=== PATIENT | female | born 1950 | race Caucasian/White ===

== ENCOUNTER 2021-01-20 10:44 | Outpatient (REF) | payer MEDICARE, SELFPAY ==
[2021-01-20 14:24] LABS: Hematocrit 40.7 % (37-47); Hemoglobin 12.6 g/dl (12.0-16.0); Mean Corpuscular Hemoglobin 29.3 pg (27.0-33.0); Mean Corpuscular Volume 94.7 fL (80-98); Mean Platelet Volume 10.8 fL (9.4-12.3); Platelet Count 297 X10*3/uL (160-400); Red Cell Distribution Width 14.5 % (11.0-16.0); White Blood Count 8.4 X10*3/uL (4.8-10.8)
[2021-01-20 14:32] LABS: Glucose Urine UA NEG (NEG); Leukocyte Esterase Urine NEG (NEG); Nitrite Urine NEG (NEG); Specific Gravity - Urine 1.015 (1.005-1.025); Urine Blood NEG (NEG); Urine Ketones NEG (NEG); Urine Protein NEG (NEG-TRACE)
[2021-01-20 14:43] LABS: Appearance Urine CLEAR; Color Urine YELLOW
[2021-01-20 14:52] LABS: Alanine Aminotransferase 15 U/L (0-31); Albumin Level 4.3 g/dL (3.5-5.0); Alkaline Phosphatase 82 U/L (39-117); Anion Gap 14 (12-20); Aspartate Amino Transferase 14 U/L (5-31); Bilirubin Total 0.7 mg/dL (0.0-1.0); Blood Urea Nitrogen 12 mg/dL (9-16); Calcium 9.8 mg/dL (8.4-10.2); Carbon Dioxide 31 mmol/L (22-29); Chloride 101 mmol/L (96-108); Cholesterol 193 mg/dL; Estimated Glomerular Filt Rate > 60; Glucose Fasting 95 mg/dL (60-99); HDL Cholesterol 42 mg/dL; LDL Cholesterol Calculated 107 mg/dl; Potassium 4.1 mmol/L (3.3-5.1); Sodium 142 mmol/L (135-145); Triglycerides 224 mg/dL
[2021-01-20 14:55] LABS: TSH reflex Free T4 0.39 uIU/mL (0.32-4.0)
== END 2021-01-20 10:45 | disposition home or self-care (01) ==
LOC: HO.HMGCLDS 10:44
PROVIDERS: PCP Internal Medicine; Visit Provider Internal Medicine
DX: E78.5 Hyperlipidemia, unspecified (principal); I10 Essential (primary) hypertension; M17.10 Unilateral primary osteoarthritis, unspecified knee
CPT/HCPCS: 36415; 80053; 80061; 81003; 84443; 85027

== ENCOUNTER 2021-01-29 10:35 | Outpatient (REF) | payer MEDICARE, SELFPAY ==
--- NOTE | ~2021-01-29 | MM_ITS ---
EXAMINATION: MM SCREENING DIGITAL BREAST TOMOSYNTHESIS, BILATERAL CLINICAL INFORMATION: Screening. Asymptomatic. The lifetime risk of breast cancer based on the Tyrer-Cuzick Model is 4%. COMPARISON: Mammography: 09/05/2019, 09/03/2018, 08/07/2017 TECHNIQUE: Digital breast tomosynthesis is performed in both the craniocaudal and mediolateral oblique views along with computer-aided detection (CAD). Synthesized 2D images are generated from the tomosynthesis. Additional bilateral CC and bilateral MLO views are provided. FINDINGS: There are scattered areas of fibroglandular density (ACR BI-RADS breast composition Category b). There are no significant masses, abnormal calcifications, or other abnormalities. Parenchymal pattern is similar to prior studies. There is no developing density. No abnormal calcifications. The skin contours are smooth. MM/MM tomosynthesis screening BI IMPRESSION: No mammographic evidence of malignancy. ASSESSMENT: BI-RADS 1: Negative RECOMMENDATION: Routine annual mammography screening. This patient's information was entered into a reminder system with a target due date for their next mammogram.
== END 2021-01-29 10:36 | disposition home or self-care (01) ==
LOC: HO.MAMMO 10:35
PROVIDERS: PCP Internal Medicine; Visit Provider Internal Medicine
DX: Z12.31 Encounter for screening mammogram for malignant neoplasm of breast (principal)
CPT/HCPCS: 77063; 77067

== ENCOUNTER → 2021-02-04 10:07 | Outpatient (BNVA) | payer MEDICARE, SELFPAY | PROVIDERS: Visit Provider Orthopaedic Surgery | DX: M17.0 Bilateral primary osteoarthritis of knee (principal) | CPT/HCPCS: 20610; 99212; J1040 ==

== ENCOUNTER → 2021-06-21 12:48 | Outpatient (BNVA) | payer MEDICARE, SELFPAY | PROVIDERS: Visit Provider Physician Assistant | DX: M17.0 Bilateral primary osteoarthritis of knee (principal); I10 Essential (primary) hypertension; E66.01 Morbid (severe) obesity due to excess calories; Z68.41 Body mass index [BMI] 40.0-44.9, adult | CPT/HCPCS: 20610; 99212; J1040 ==

== ENCOUNTER → 2021-12-15 10:47 | Outpatient (BNVA) | payer MEDICARE, SELFPAY | PROVIDERS: Visit Provider Physician Assistant | DX: M17.0 Bilateral primary osteoarthritis of knee (principal) | CPT/HCPCS: 20610; 99212; J1040 ==

== ENCOUNTER 2022-02-01 10:17 | Outpatient (REF) | payer MEDICARE, SELFPAY ==
--- NOTE | ~2022-02-01 | MM_ITS ---
EXAMINATION: MM SCREENING DIGITAL BREAST TOMOSYNTHESIS, BILATERAL CLINICAL INFORMATION: Screening. Asymptomatic. The lifetime risk of breast cancer based on the Tyrer-Cuzick Model is 3%. COMPARISON: Mammography: 01/29/2021, 09/05/2019, 09/03/2018 TECHNIQUE: Digital breast tomosynthesis is performed in both the craniocaudal and mediolateral oblique views along with computer-aided detection (CAD). Synthesized 2D images are generated from the tomosynthesis. Additional left CC view is provided. FINDINGS: There are scattered areas of fibroglandular density (ACR BI-RADS breast composition Category b). There are no significant masses, abnormal calcifications, or other abnormalities. No developing density or architectural abnormality. No significant changes. MM/MM tomosynthesis screening BI IMPRESSION: No mammographic evidence of malignancy. ASSESSMENT: BI-RADS 1: Negative RECOMMENDATION: Routine annual mammography screening. This patient's information was entered into a reminder system with a target due date for their next mammogram.
== END 2022-02-01 10:18 | disposition home or self-care (01) ==
LOC: HO.MAMMO 10:17
PROVIDERS: PCP Internal Medicine; Visit Provider Internal Medicine
DX: Z12.31 Encounter for screening mammogram for malignant neoplasm of breast (principal)
CPT/HCPCS: 77063; 77067

== ENCOUNTER → 2022-04-17 12:58 | Outpatient (BNVA) | payer MEDICARE, SELFPAY | PROVIDERS: PCP Internal Medicine; Visit Provider Physician Assistant | DX: M17.0 Bilateral primary osteoarthritis of knee (principal) | CPT/HCPCS: 20610; 99212; J1040 ==

== ENCOUNTER 2022-04-26 08:27 | Outpatient (REF) | payer MEDICARE, SELFPAY ==
[2022-04-26 11:15] LABS: MANUAL DIFF FLAG NO
[2022-04-26 11:24] LABS: Basophils Percent Auto 0.4 % (0-2); Eosinophils Absolute Auto 0.2 X10*3/uL (0.0-0.4); Eosinophils Percent Auto 1.8 % (0-4); Hematocrit 41.2 % (37.0-47.0); Hemoglobin 12.8 g/dl (12.0-16.0); Imm Gran Abs Auto 0.05 X10*3/uL (0.00-0.03); Imm Gran Pct Auto 0.5 % (0.0-0.4); Lymphocytes Absolute Auto 1.8 X10*3/uL (1.2-4.9); Lymphocytes Percent Auto 17.7 % (20-40); Mean Corpuscular HGB Conc 31.1 g/dl (31.0-35.0); Mean Corpuscular Hemoglobin 29.6 pg (27.0-33.0); Mean Corpuscular Volume 95.4 fL (80.0-98.0); Mean Platelet Volume 10.2 fL (9.4-12.3); Monocytes Absolute Auto 0.6 X10*3/uL (0.1-1.2); Monocytes Percent Auto 5.7 % (2-11); Neutrophils Absolute Auto 7.4 x10*3/uL (2.0-8.3); Neutrophils Percent Auto 73.9 % (45-73); Platelet Count 282 X10*3/uL (160-400); Red Blood Count 4.32 X10*6/uL (4.20-5.50); Red Cell Distribution Width 14.2 % (11.0-16.0); White Blood Count 10.1 X10*3/uL (4.8-10.8)
[2022-04-26 11:52] LABS: Alanine Aminotransferase 17 U/L (0-31); Albumin Level 4.1 g/dL (3.5-5.0); Alkaline Phosphatase 77 U/L (39-117); Anion Gap 12 (12-20); Aspartate Amino Transferase 13 U/L (5-31); Bilirubin Total 0.6 mg/dL (0.0-1.0); Blood Urea Nitrogen 15 mg/dL (9-16); Calcium 9.4 mg/dL (8.4-10.2); Carbon Dioxide 33 mmol/L (22-29); Chloride 101 mmol/L (96-108); Cholesterol 175 mg/dL; Estimated Glomerular Filt Rate > 60; Glucose Fasting 85 mg/dL (60-99); HDL Cholesterol 47 mg/dL; LDL Cholesterol Calculated 105 mg/dl; Potassium 4.2 mmol/L (3.3-5.1); Sodium 142 mmol/L (135-145); Total Protein 6.7 g/dL (6.5-8.0); Triglycerides 116 mg/dL
[2022-04-26 12:00] LABS: Appearance Urine CLEAR; Color Urine YELLOW; Glucose Urine UA NEG (NEG); Leukocyte Esterase Urine NEG (NEG); Nitrite Urine NEG (NEG); Specific Gravity - Urine 1.015 (1.005-1.025); Urine Blood NEG (NEG); Urine Ketones NEG (NEG); Urine Protein NEG (NEG-TRACE)
[2022-04-26 12:14] LABS: TSH reflex Free T4 0.34 uIU/mL (0.32-4.0)
[2022-04-26 13:25] LABS: Amorphous Sediment Urine 1+ /LPF; Squamous Epithelial Cell Urine 1+ /LPF
[2022-04-26 13:26] LABS: RBC Urine 0 /HPF (0); WBC Urine 0 /HPF (0-4)
== END 2022-04-26 08:28 | disposition home or self-care (01) ==
LOC: HO.HMGCLDS 08:27
PROVIDERS: PCP Internal Medicine; Visit Provider Internal Medicine
DX: Z00.00 Encounter for general adult medical examination without abnormal findings (principal); I10 Essential (primary) hypertension; E78.5 Hyperlipidemia, unspecified; E66.01 Morbid (severe) obesity due to excess calories
CPT/HCPCS: 36415; 80053; 80061; 81001; 84443; 85025

== ENCOUNTER 2022-07-24 06:02 | Outpatient (REF) | payer MEDICARE, SELFPAY ==
--- NOTE | ~2022-07-24 | XR_ITS ---
EXAMINATION: XR KNEE, RIGHT XR KNEE, LEFT XR KNEE AP STANDING CLINICAL INFORMATION: Bilateral knee pain. COMPARISON: Radiographs dated 04/06/2020. TECHNIQUE: Lateral and axial views of the right knee were obtained. Lateral and axial views of the left knee were obtained. AP bilateral standing view of the knees was obtained. RIGHT KNEE: FINDINGS: Bony mineralization is normal. There is marked asymmetric narrowing of the medial joint , and the lateral joint space compartment is well-maintained. There is marked narrowing of the patellofemoral compartment. There is tricompartment peripheral osteophyte formation. No fracture or dislocation is seen. There is no significant joint effusion. No foreign body is seen. XR/XR knee LT 2V IMPRESSION: 1. There is tricompartment osteoarthritic change of the right knee, most pronounced of the medial and patellofemoral compartments, where it is marked. 2. No right knee fracture, dislocation or significant joint effusion is seen. LEFT KNEE: FINDINGS: Bony mineralization is normal. There is marked asymmetric narrowing of the medial joint space compartment, and the lateral joint space compartment is well-maintained. There is marked narrowing of the patellofemoral compartment. There is tricompartment peripheral osteophyte formation. No fracture or dislocation is seen. There is a moderate joint effusion. No foreign body is seen. IMPRESSION: 1. There is tricompartment osteoarthritic change of the left knee, most pronounced of the medial and patellofemoral compartments, where it is marked. 2. There is a moderate left knee joint effusion.
--- NOTE | ~2022-07-24 | XR_ITS ---
EXAMINATION: XR KNEE, RIGHT XR KNEE, LEFT XR KNEE AP STANDING CLINICAL INFORMATION: Bilateral knee pain. COMPARISON: Radiographs dated 04/06/2020. TECHNIQUE: Lateral and axial views of the right knee were obtained. Lateral and axial views of the left knee were obtained. AP bilateral standing view of the knees was obtained. RIGHT KNEE: FINDINGS: Bony mineralization is normal. There is marked asymmetric narrowing of the medial joint , and the lateral joint space compartment is well-maintained. There is marked narrowing of the patellofemoral compartment. There is tricompartment peripheral osteophyte formation. No fracture or dislocation is seen. There is no significant joint effusion. No foreign body is seen. XR/XR knee RT 2V IMPRESSION: 1. There is tricompartment osteoarthritic change of the right knee, most pronounced of the medial and patellofemoral compartments, where it is marked. 2. No right knee fracture, dislocation or significant joint effusion is seen. LEFT KNEE: FINDINGS: Bony mineralization is normal. There is marked asymmetric narrowing of the medial joint space compartment, and the lateral joint space compartment is well-maintained. There is marked narrowing of the patellofemoral compartment. There is tricompartment peripheral osteophyte formation. No fracture or dislocation is seen. There is a moderate joint effusion. No foreign body is seen. IMPRESSION: 1. There is tricompartment osteoarthritic change of the left knee, most pronounced of the medial and patellofemoral compartments, where it is marked. 2. There is a moderate left knee joint effusion.
--- NOTE | ~2022-07-24 | XR_ITS ---
EXAMINATION: XR KNEE, RIGHT XR KNEE, LEFT XR KNEE AP STANDING CLINICAL INFORMATION: Bilateral knee pain. COMPARISON: Radiographs dated 04/06/2020. TECHNIQUE: Lateral and axial views of the right knee were obtained. Lateral and axial views of the left knee were obtained. AP bilateral standing view of the knees was obtained. RIGHT KNEE: FINDINGS: Bony mineralization is normal. There is marked asymmetric narrowing of the medial joint , and the lateral joint space compartment is well-maintained. There is marked narrowing of the patellofemoral compartment. There is tricompartment peripheral osteophyte formation. No fracture or dislocation is seen. There is no significant joint effusion. No foreign body is seen. XR/XR knee standing BI IMPRESSION: 1. There is tricompartment osteoarthritic change of the right knee, most pronounced of the medial and patellofemoral compartments, where it is marked. 2. No right knee fracture, dislocation or significant joint effusion is seen. LEFT KNEE: FINDINGS: Bony mineralization is normal. There is marked asymmetric narrowing of the medial joint space compartment, and the lateral joint space compartment is well-maintained. There is marked narrowing of the patellofemoral compartment. There is tricompartment peripheral osteophyte formation. No fracture or dislocation is seen. There is a moderate joint effusion. No foreign body is seen. IMPRESSION: 1. There is tricompartment osteoarthritic change of the left knee, most pronounced of the medial and patellofemoral compartments, where it is marked. 2. There is a moderate left knee joint effusion.
== END 2022-07-24 06:03 | disposition home or self-care (01) ==
LOC: HO.HOSX 06:02
PROVIDERS: Visit Provider Physician Assistant
DX: M17.0 Bilateral primary osteoarthritis of knee (principal)
CPT/HCPCS: 20610; 73560; 73565; 99212; J1040

== ENCOUNTER → 2022-11-30 14:53 | Outpatient (BNVA) | payer MEDICARE, SELFPAY | PROVIDERS: PCP Internal Medicine; Visit Provider Physician Assistant | DX: M17.0 Bilateral primary osteoarthritis of knee (principal) | CPT/HCPCS: 20610; 99212; J1040 ==

== ENCOUNTER → 2022-12-26 09:18 | Outpatient (BNVA) | payer MEDICARE, SELFPAY | PROVIDERS: PCP Internal Medicine; Visit Provider Internal Medicine | DX: R19.5 Other fecal abnormalities (principal) | CPT/HCPCS: 99202 ==

== ENCOUNTER 2023-01-18 09:30 | Day surgery (SDC) | payer MEDICARE, SELFPAY ==
[2023-01-15 14:09] VITALS: BMI 43.2
--- NOTE | 2023-01-17 12:31 | HO.ANESPROP2 ---
HPI - Anesthesia Eval Consult details Narrative: 72yo F for Colonoscopy PMFSH Active Problems Active Problems: All Active Problems (Updated 08/24/22 @ 12:49 by Aurelia Hair MD) Positive colorectal cancer screening using Cologuard test (Acute) Annual physical exam (Acute) Primary osteoarthritis of knees, bilateral (Acute) Annual physical exam (Acute) Osteoarthritis, knee (Acute) Past Medical History Medical History Annual physical exam Dermatitis HTN (hypertension) Hyperlipidemia Morbidly obese Osteoarthritis, knee Ovarian cyst rupture Surgical History Surgical History H/O colonoscopy History of appendectomy Social History Social History Housing: House Alcohol intake: current Alcohol intake frequency: does not drink Patient Tobacco Use Status: Never used Tobacco e-Cigarette/Vaping Use: Never Used Current occupational status: retired Cognitive needs: No Hearing needs: No Vision needs: Yes Meds Allergies Allergy/AdvReac Type Severity Reaction Status Date / Time Latex, Natural Rubber Allergy Mild Rash Verified 12/26/22 09:25 Home Medications Medication Instructions Recorded Confirmed Last Taken Type ulqkklki-vnpe-xkvip acid 120 1 tab PO DAILY 12/26/22 Unknown History mcg-herb no.293 37.5 mg chewable tablet (Alive Women's Gummy Vitamin) tumeric 100 mg-noreen 150 mg-olive 1 cap PO DAILY 12/26/22 01/15/23 Unknown History 50 mg-oreg 150 mg-caprylate capsule vitamin B complex (B 1 tab PO DAILY 12/26/22 01/15/23 Unknown History Complex-Vitamin B12 tablet) vitamin E (dl, acetate) 45 mg (100 45 mg PO DAILY 12/26/22 01/15/23 Unknown History unit) capsule Exam Exam Date and Time: January 17, 2023 1231 Height,Weight and Vital Signs: Height 5 ft 5 in Weight 117.934 kg Assessment and Plan Assessment Anesthesia Assessment: Chart Reviewed
[2023-01-18 09:44] VITALS: BP 141/107; PULSE 70; RESP 18; TEMP 36.1; O2SAT 98
[2023-01-18 10:04] VITALS: BMI 43.3
[2023-01-18] MEDS: Lactated Ringers 1,000 ML 100 ML IVCONT (10:11)
--- NOTE | 2023-01-18 10:21 | MHC.SHP ---
Pre-Procedural Eval Section A Date of Service: 01/18/23 The patient is an INPATIENT: No Changes since office visit: Yes Patient answered all questions; No Cold of Flu in the past 2 weeks, No New Medical Problems and No Changes in Medication The History & Physical has been completed within 30 days and I have reviewed it.: Yes Section B Chief Complaint: screening, positive cologuard Allergies: Allergies Allergy/AdvReac Type Severity Reaction Status Date / Time Latex, Natural Rubber Allergy Mild Rash Verified 12/26/22 09:25 Plan I have reviewed the history and physical and performed a pertinent physical examination on my patient. No changes have occurred unless specified. Time Spent With Patient Time: Total time managing care of this patient today ____ minutes.
--- NOTE | 2023-01-18 11:15 | P.OP_ITS ---
Operative Note Operative Note Date of Service: 01/18/23 Narrative: COLONOSCOPY TILL CECUM Pre-op diagnosis: Positive cologuard test Post-op diagnosis:? Diverticulosis, hemorrhoids Endoscopist:? Christ Mandujano MD Anesthesia:?MAC Consent: Indications for the procedure and potential complications of bleeding, perforation, reaction to medications and missed diagnosis were discussed with the patient and informed consent was obtained. Instrument: Olympus PCF H 190 L variable stiffness pediatric colonoscope Monitoring: Vital signs and clinical assessment, intermittent blood pressure monitoring, continuous EKG monitoring, Pulse oximetry and Carbon Dioxide monitoring were done throughout the procedure. Please see anesthesia flowsheet. Colon withdrawl time was 19 minutes. Procedure: The patient was placed in the left lateral decubitis position and pre-procedure medications were administered. After a digital rectal examination of the ano-rectum, the video colonoscope was inserted into the rectum and advanced through the colon to the cecum. The colonoscope was slowly withdrawn in a retrograde panoramic fashion and the colon mucosa was carefully examined including a retroflexed view of the rectum. Findings and interventions are described below. Procedure Difficulty: Colon was long and tortuous and there was some loop for mation. LLQ pressure applied to intubate the cecum Findings: Terminal Ileum: Not evaluated Cecum: Normal Ascending Colon: Normal Transverse Colon: Normal Descending Colon: Moderate diverticulosis Sigmoid Colon: Moderate diverticulosis Rectum: Normal Ano-rectum: Moderate internal hemorrhoids Colon preparation: A thin layer of adherent stool in the right colon and Good in the left colon after some irrigation Impression and Post Procedure Diagnosis: Colonoscopy Findings: No polyps were detected Moderate diverticulosis seen in the left colon Moderate hemorrhoids on retroflexed exam. Plan: Patient has an appointment on 01/31/23 in the [facility] with Dr Moreno. Repeat Colonoscopy interval based on path results - in 5 years versus repeat cologuard in 3 years. Adult colonoscope for future colonoscopies. Above findings were reviewed with the patient and diverticulosis handout was given in the discharge area
[2023-01-18 12:10] VITALS: BP 153/83; PULSE 86; RESP 16; TEMP 36.6; O2SAT 95
[2023-01-18 12:25] VITALS: BP 151/66; PULSE 65; RESP 16; O2SAT 95
[2023-01-18 12:40] VITALS: BP 149/67; PULSE 63; RESP 16; TEMP 36.2; O2SAT 97
== END 2023-01-18 13:06 | disposition home or self-care (01) ==
PROVIDERS: PCP Internal Medicine; Visit Provider Internal Medicine Gastroenterology
PROC: 0DJD8ZZ Inspection of Lower Intestinal Tract, Via Natural or Artificial Opening Endoscopic (ICD-10-PCS; CPT 45378; principal; 2023-01-18 11:30)
DX: R19.5 Other fecal abnormalities (principal); Z91.040 Latex allergy status; K57.30 Diverticulosis of large intestine without perforation or abscess without bleeding; K64.8 Other hemorrhoids; K59.09 Other constipation; I10 Essential (primary) hypertension; E78.5 Hyperlipidemia, unspecified; M17.0 Bilateral primary osteoarthritis of knee; L30.9 Dermatitis, unspecified; E66.01 Morbid (severe) obesity due to excess calories; Z68.41 Body mass index [BMI] 40.0-44.9, adult
CPT/HCPCS: 45378

== ENCOUNTER 2023-02-07 09:49 | Outpatient (REF) | payer MEDICARE, SELFPAY ==
--- NOTE | ~2023-02-07 | MM_ITS ---
EXAMINATION: MM SCREENING DIGITAL BREAST TOMOSYNTHESIS, BILATERAL CLINICAL INFORMATION: Screening. Asymptomatic. The lifetime risk of breast cancer based on the Tyrer-Cuzick Model is 2.5%. COMPARISON: Mammography: February 01, 2022 and studies dating back to January 13, 2014 TECHNIQUE: Digital breast tomosynthesis is performed in both the craniocaudal and mediolateral oblique views along with computer-aided detection (CAD). Synthesized 2D images are generated from the tomosynthesis. FINDINGS: The breasts are almost entirely fatty (ACR BI-RADS breast composition Category a). There are no significant masses, abnormal calcifications, or other abnormalities. MM/MM tomosynthesis screening BI IMPRESSION: No significant changes ASSESSMENT: BI-RADS 1: Negative RECOMMENDATION: Routine annual mammography screening. This patient's information was entered into a reminder system with a target due date for their next mammogram.
== END 2023-02-07 09:50 | disposition home or self-care (01) ==
LOC: HO.MAMMO 09:49
PROVIDERS: PCP Internal Medicine; Visit Provider Internal Medicine
DX: Z12.31 Encounter for screening mammogram for malignant neoplasm of breast (principal)
CPT/HCPCS: 77063; 77067

== ENCOUNTER → 2023-02-20 13:02 | Outpatient (BNVA) | payer MEDICARE, SELFPAY | PROVIDERS: PCP Internal Medicine; Visit Provider Physician Assistant | DX: M17.0 Bilateral primary osteoarthritis of knee (principal) | CPT/HCPCS: 20610; 99212; J1040 ==

== ENCOUNTER 2023-04-09 12:26 | Outpatient (AMB) | payer MEDICARE, SELFPAY ==
[2023-04-09 12:36] VITALS: BP 124/74; PULSE 57; O2SAT 98; BMI 43.9
--- NOTE | 2023-04-09 12:36 | A.OFFPC_ITS ---
Vital Signs 04/09/23 12:36 Height 5 ft 5 in Weight 264 lb BMI 43.9 BP 124/74 Blood Pressure Location Rt brachial Position Sitting Pulse 57 Pulse Source Pulse Oximeter Pulse Oximetry (%) 98 Oxygen Delivery Method Room Air Intake Visit Reasons: Medication review Intake Note: Pt is here today for her medication reivew Allergies Latex, Natural Rubber Allergy (Mild, Verified 04/09/23 12:41) Rash Medication List - Last Reconciled 04/09/23 by Aurelia Hair MD diclofenac sodium 75 mg PO BID PRN hydrochlorothiazide 25 mg PO DAILY lisinopril 20 mg PO DAILY lovastatin 20 mg PO DAILY ycaefnay-mxy-hyavf acid-ncu551 120 mcg- 37.5 mg (Alive Women's Gummy Vitamin) 1 tab PO DAILY zbxfcsa-mvjd-kgasf-oreg-capryl 100 mg-150 mg- 50 mg-150 mg 1 cap PO DAILY vitamin B complex (B Complex-Vitamin B12 tablet) 1 tab PO DAILY vitamin E (dl, acetate) 45 mg PO DAILY Tobacco use date assessed: 04/09/23 Fall risk assessment: No Falls in past year Last assessed Fall Risk: 04/09/23 Dental Screening Dental Screen Date: 04/09/23 Did you have a dental visit in the last 12 months?: Yes Did you have a dental problem in the last 6 months where you did not have access to dental care?: Yes Was dental information given to patient?: Patient has dentist HPI Medication review HPI Details Patient presents for physical [facility] Medical History (Updated 04/09/23 @ 13:23 by Aurelia Hair MD) Annual physical exam Dermatitis HTN (hypertension) Hyperlipidemia Morbidly obese Osteoarthritis, knee Ovarian cyst rupture Surgical History (Updated 04/09/23 @ 13:32 by Aurelia Hair MD) H/O colonoscopy History of appendectomy Social History Housing: House Alcohol intake: current Alcohol intake frequency: does not drink Patient Tobacco Use Status: Never used Tobacco e-Cigarette/Vaping Use: Never Used Current occupational status: retired Cognitive needs: No Hearing needs: No Vision needs: Yes Questionnaire Thrive Questionnaire Date Thrive assessed: 03/15/22 AUDIT C Alcohol Use Questionnaire (AUDIT-C) 1. How often do you have a drink containing alcohol?: Never Total Score: 0 Score Reviewed/Action Taken: Yes KIRSTY-7 AMB Questionnaire KIRSTY-7 Date KIRSTY - 7 assessed: 03/15/22 Source: Developed by Drs. Jaron Anderson, Sandi Anton, Shaggy Wiggins and colleagues, with an educational arvind from [employer]. Review of Systems Const All systems reviewed & are unremarkable except as noted in HPI and below Reports no additional complaints Eyes Reports no additional complaints ENT Reports no additional complaints Card Reports no additional complaints Resp Reports no additional complaints GI Reports no additional complaints Reports no additional complaints Physical exam (Primary Care) Vital Signs: Last Vital Signs Pulse 57 04/09/23 12:36 BP 124/74 04/09/23 12:36 Pulse Ox 98 04/09/23 12:36 Oxygen Delivery Method Room Air 04/09/23 12:36 BMI result Body Mass Index 43.9 Tobacco/Smoking Status: Tobacco use Status Tobacco use date assessed 04/09/23 04/09/23 12:38 Patient Tobacco Use Status Never used Tobacco 04/09/23 12:38 e-Cigarette/Vaping Use Never Used 04/09/23 12:38 Thrive Assessment: Date of Thrive Assessment Date Thrive assessed 03/15/22 04/09/23 12:38 Const General: no acute distress HENMT General nose exam: Normal external nose present Throat: Yes posterior oropharynx normal Eyes General: appearance normal, both eyes and all related structures Neck Neck: Yes no lymphadenopathy and Yes supple Resp Effort & Inspection: normal respiratory effort Auscultation: clear to auscultation bilaterally Cardio Rhythm: regular rhythm Heart sounds: S1 normal heart sound present and S2 normal heart sound present GI Inspection: Yes normal to inspection and Yes obesity Palpation (GI): Soft to palpation Percussion: Yes normal to percussion Auscultation: normal bowel sounds Assessment and Plan Assessment & Plan (1) HTN (hypertension): Code(s): I10 - Essential (primary) hypertension Plan: CONTINUE LISINOPRIL AND HYDROCHLOROTHIAZIDE (2) Hyperlipidemia: Code(s): E78.5 - Hyperlipidemia, unspecified Plan: Continue statin return for fasting labs including lipid profile (3) Annual physical exam: Code(s): Z00.00 - Encounter for general adult medical examination without abnormal findings Plan: Well-balanced diet regular physical activity weight loss discussed with the patient. She is up-to-date with mammogram and colonoscopy. (4) Osteoarthritis, knee: Code(s): M17.10 - Unilateral primary osteoarthritis, unspecified knee Plan: Patient follows up with orthopedic surgeon Orders: Orders Vitamin B12 and Folate Today E78.5 - Hyperlipidemia, unspecified, I10 - Essential (primary) hypertension, Z00.00 - Encounter for general adult medical examination without abnormal findings Comprehensive [place]. Panel Fast Today E78.5 - Hyperlipidemia, unspecified, I10 - Essential (primary) hypertension, Z00.00 - Encounter for general adult medical examination without abnormal findings Lipid Panel Today E78.5 - Hyperlipidemia, unspecified, I10 - Essential (primary) hypertension, Z00.00 - Encounter for general adult medical examination without abnormal findings TSH reflex Free T4 Today E78.5 - Hyperlipidemia, unspecified, I10 - Essential (primary) hypertension, Z00.00 - Encounter for general adult medical examination without abnormal findings Complete Blood Count Auto Diff Today E78.5 - Hyperlipidemia, unspecified, I10 - Essential (primary) hypertension, Z00.00 - Encounter for general adult medical examination without abnormal findings Coding Level of Care Code Est Pt Prev Care >65y(88110) Diagnoses HTN (hypertension) I10 Hyperlipidemia E78.5 Annual physical exam Z00.00 Osteoarthritis, knee M17.10
== END 2023-04-09 13:34 | disposition home or self-care (01) ==
PROVIDERS: PCP Internal Medicine; Visit Provider Internal Medicine
DX: I10 Essential (primary) hypertension (principal); E78.5 Hyperlipidemia, unspecified; Z00.00 Encounter for general adult medical examination without abnormal findings; M17.10 Unilateral primary osteoarthritis, unspecified knee
CPT/HCPCS: 99397

== ENCOUNTER 2023-06-05 08:35 | Outpatient (REF) | payer MEDICARE, SELFPAY ==
[2023-06-05 11:40] LABS: MANUAL DIFF FLAG NO
[2023-06-05 11:47] LABS: Basophils Absolute Auto 0.1 X10*3/uL (0.0-0.2); Basophils Percent Auto 0.7 % (0-2); Eosinophils Absolute Auto 0.2 X10*3/uL (0.0-0.4); Eosinophils Percent Auto 3.3 % (0-4); Hematocrit 37.5 % (37.0-47.0); Hemoglobin 11.9 g/dl (12.0-16.0); Imm Gran Abs Auto 0.03 X10*3/uL (0.00-0.03); Imm Gran Pct Auto 0.4 % (0.0-0.4); Lymphocytes Absolute Auto 1.6 X10*3/uL (1.2-4.9); Lymphocytes Percent Auto 22.5 % (20-40); Mean Corpuscular HGB Conc 31.7 g/dl (31.0-35.0); Mean Corpuscular Hemoglobin 30.2 pg (27.0-33.0); Mean Corpuscular Volume 95.2 fL (80.0-98.0); Mean Platelet Volume 11.1 fL (9.4-12.3); Monocytes Absolute Auto 0.5 X10*3/uL (0.1-1.2); Monocytes Percent Auto 7.1 % (2-11); Neutrophils Absolute Auto 4.8 x10*3/uL (2.0-8.3); Platelet Count 264 X10*3/uL (160-400); Red Blood Count 3.94 X10*6/uL (4.20-5.50); Red Cell Distribution Width 14.2 % (11.0-16.0); White Blood Count 7.2 X10*3/uL (4.8-10.8)
[2023-06-05 12:38] LABS: Alanine Aminotransferase 21 U/L (0-31); Albumin Level 3.8 g/dL (3.5-5.0); Alkaline Phosphatase 61 U/L (39-117); Anion Gap 15 (12-20); Aspartate Amino Transferase 23 U/L (5-31); Bilirubin Total 0.5 mg/dL (0.0-1.0); Blood Urea Nitrogen 14 mg/dL (9-16); Calcium 9.8 mg/dL (8.4-10.2); Carbon Dioxide 27 mmol/L (22-29); Chloride 104 mmol/L (96-108); Cholesterol 174 mg/dL (<200); Estimated Glomerular Filt Rate > 60; Glucose Fasting 89 mg/dL (60-99); HDL Cholesterol 38 mg/dL (>40); LDL Cholesterol Calculated 95 mg/dL (<100); Potassium 3.7 mmol/L (3.3-5.1); Sodium 142 mmol/L (135-145); Total Protein 6.7 g/dL (6.5-8.0); Triglycerides 206 mg/dL (<150)
[2023-06-05 12:44] LABS: Folate 17.7 ng/mL (> or = 4.0); Vitamin B12 812 pg/mL (200-900)
[2023-06-05 13:34] LABS: Free T4 (Free Thyroxine) 0.91 ng/dL (0.71-1.85)
== END 2023-06-05 08:36 | disposition home or self-care (01) ==
LOC: HO.HMGCLDS 08:35
PROVIDERS: PCP Internal Medicine; Visit Provider Internal Medicine
DX: Z00.00 Encounter for general adult medical examination without abnormal findings (principal); M17.0 Bilateral primary osteoarthritis of knee; I10 Essential (primary) hypertension; E78.5 Hyperlipidemia, unspecified
CPT/HCPCS: 20610; 36415; 80053; 80061; 82607; 82746; 84439; 84443; 85025; 99212; J1040

== ENCOUNTER 2023-06-05 13:02 | Outpatient (AMB) | payer MEDICARE, SELFPAY ==
--- NOTE | 2023-06-05 13:03 | A.OFFVIS_ITS ---
Intake Vital Signs 06/05/23 13:12 Height 5 ft 6 in Weight 264 lb BMI 42.6 Intake Visit Reasons: OV-B/L knee injection-last injection 02/20/23 Intake Note: Winnie is a 72 year old female who presents today for a repeat injections for her bilateral knee injections, last injections 02/20/23. Patient reports her last injections gave her a month of relief. She also would like a estimated weight to be eligible for surgery. Allergies Latex, Natural Rubber Allergy (Mild, Verified 06/05/23 13:12) Rash HPI OV-B/L knee injection-last injection 02/20/23 HPI Details 72-year-old female who presents in the [facility] today for a follow up of bilateral knee pain. The patient had cortisone injections in the bilateral knees on 02/20/2023. She states the last injection gave her about a month of relief. She would like a repeat injection while in the office today. She would also like to know her estimated weight to be eligible for surgery. Patient BMI is 42.6 on 06/05/2023, with a weight of 264 lbs. [facility] Medical History (Updated 04/09/23 @ 13:23 by Aurelia Hair MD) Annual physical exam Osteoarthritis, knee Ovarian cyst rupture Morbidly obese Hyperlipidemia HTN (hypertension) Dermatitis Surgical History (Updated 04/09/23 @ 13:32 by Aurelia Hair MD) History of appendectomy H/O colonoscopy Social History Housing: House Alcohol intake: current Alcohol intake frequency: does not drink Patient Tobacco Use Status: Never used Tobacco e-Cigarette/Vaping Use: Never Used Current occupational status: retired Cognitive needs: No Hearing needs: No Vision needs: Yes Review of Systems Const All systems reviewed & are unremarkable except as noted in HPI and below Physical Exam Vital Signs: BMI result Body Mass Index 42.6 Const General: cooperative, healthy appearing and no acute distress Resp Effort & Inspection: normal respiratory effort and able to speak in complete sentences Cardio Rate: regular rate Peripheral pulses: Peripheral pulses 2+ throughout GI Palpation (GI): Soft to palpation Skin Lesions: no lesions Rashes: no rashes Extrem Other: Bilateral knees: Normal to inspection. No ecchymosis, erythema, or joint effusion. Crepitus felt with ROM. ROM is 0 to 110. NVI. Office Procedures Joint Injection/Drain Joint Injection/Drain Primary Site: right knee Secondary Site: left knee Prep: site was prepped using aseptic technique, ethochloride spray was applied and injection warnings given Injected: 80 mg of, DepoMedrol, with 8 mL of (2% plain lido ) and in the joint Approach Used: anterolateral Procedure: The patient tolerated the procedure well, but had some pain with the injection and there was some relief with the local anesthesia Coding - Large joint Procedure code (CPT) selection complete Results Reviewed Results Reviewed: 06/05/23 13:03 Lidocaine HCl 2 % MPF [Xylocaine 2 % MPF] 5 ml .ROUTE .STK-MED ONE methylPREDNISolone acetate [DEPO-MedroL] 80 mg .ROUTE .STK-MED ONE Assessment & Plan Assessment & Plan (1) Primary osteoarthritis of knees, bilateral: Code(s): M17.0 - Bilateral primary osteoarthritis of knee Plan Ms. Cade is a 72-year-old female who presents in the office today for a follow up of bilateral knee pain. The patient had cortisone injections in the bilateral knees on 02/20/2023. She states the last injection gave her about a month of relief. She would like a repeat injection while in the office today. She would also like to know her estimated weight to be eligible for surgery. Patient BMI is 42.6 on 06/05/2023, with a weight of 264 lbs. The patient was offered a cortisone injection in the bilateral knees with 80 mg of DepoMedrol. The patient was explained the risk, benefits, and alternatives to receiving this injection. After receiving consent for the injection, the patient had the procedure done while in office today. The patient tolerated the procedure well with no complications. I discussed with the patient that her weight lose goal would be about 25 lbs, to put her BMI below 40. Follow up will be PRN, or sooner if needed. Patient Instructions: Scribed for Lynnette Ramirez PA-C by Brii Kirkpatrick medical office specialist, on 06/05/2023 at 1:05 pm, EST. Coding Level of Care Code Est Pt Level 3 (25415) Diagnoses Primary osteoarthritis of knees, bilateral M17.0 CPT Codes Coding - Large joint: 07738 - Large joint ([id number])
[2023-06-05 13:12] VITALS: BMI 42.6
== END 2023-06-05 13:34 | disposition home or self-care (01) ==
PROVIDERS: PCP Internal Medicine; Visit Provider Physician Assistant
DX: M17.0 Bilateral primary osteoarthritis of knee (principal)
CPT/HCPCS: 20610; 99213

== ENCOUNTER 2023-10-04 09:52 | Outpatient (AMB) | payer MEDICARE, SELFPAY ==
--- NOTE | 2023-10-04 10:02 | A.OFFVIS_ITS ---
Intake Intake Visit Reasons: OV-B/L knee injection Intake Note: Winnie is a 72 year old female who presents today for a repeat injections for her bilateral knee injections, last injections 06/05/23. Patient reports her last injection didn't last her very much about 6 weeks but she would like to repeat and see if they last. Allergies Latex, Natural Rubber Allergy (Mild, Verified 10/04/23 10:04) Rash HPI OV-B/L knee injection HPI Details 72-year-old female who presents in the [facility] today for a follow up of bilateral knee pain. I last saw the patient in the office on 06/05/2023 and at that time she received cortisone injections in the bilateral knees. We discussed her BMI at the time and set a goal of lowering her body weight by 25 pounds in order to move forward with discussions of possible surgical intervention. While in the office today the patient reports her last injection gave her about 6 week s of relief. She would like to repeat the injections while in the office today to see if they last longer this time. FORMERLY [facility], [facility]1983 Medical History (Updated 04/09/23 @ 13:23 by Aurelia Hair MD) Annual physical exam Osteoarthritis, knee Ovarian cyst rupture Morbidly obese Hyperlipidemia HTN (hypertension) Dermatitis Surgical History (Updated 04/09/23 @ 13:32 by Aurelia Hair MD) History of appendectomy H/O colonoscopy Social History Housing: House Alcohol intake: current Alcohol intake frequency: does not drink Patient Tobacco Use Status: Never used Tobacco e-Cigarette/Vaping Use: Never Used Current occupational status: retired Cognitive needs: No Hearing needs: No Vision needs: Yes Review of Systems Const All systems reviewed & are unremarkable except as noted in HPI and below Physical Exam Const General: cooperative, healthy appearing and no acute distress Resp Effort & Inspection: normal respiratory effort and able to speak in complete sentences Cardio Rate: regular rate Peripheral pulses: Peripheral pulses 2+ throughout GI Palpation (GI): Soft to palpation Skin Lesions: no lesions Rashes: no rashes Extrem Other: Bilateral knees: Normal to inspection. No ecchymosis, erythema, or joint effusion. Crepitus felt with ROM. ROM is 0 to 110. NVI. Office Procedures Casting/Splints Details: No casting performed Procedure code (CPT) selection complete Joint Injection/Drain Joint Injection/Drain Primary Site: right knee Secondary Site: left knee Prep: site was prepped using aseptic technique, ethochloride spray was applied and injection warnings given Injected: 80 mg of, DepoMedrol, with 8 mL of (2% plain lido ) and in the joint Approach Used: anterolateral Procedure: The patient tolerated the procedure well, but had some pain with the injection and there was some relief with the local anesthesia Coding - Large joint Procedure code (CPT) selection complete Assessment & Plan Assessment & Plan (1) Primary osteoarthritis of knees, bilateral: Code(s): M17.0 - Bilateral primary osteoarthritis of knee Plan Ms. Cade is a 72-year-old female who presents in the office today for a follow up of bilateral knee pain. I last saw the patient in the office on 06/05/2023 and at that time she received cortisone injections in the bilateral knees. We discussed her BMI at the time and set a goal of lowering her body weight by 25 pounds in order to move forward with discussions of possible surgical intervention. While in the office today the patient reports her last injection gave her about 6 weeks of relief. She would like to repeat the injections while in the office today to see if they last longer this time. The patient was offered a cortisone injection in the bilateral knees with 80 mg of DepoMedrol. The patient was explained the risk, benefits, and alternatives to receiving this injection. After receiving consent for the injection, the patient had the procedure done while in office today. The patient tolerated the procedure well with no complications. Follow up will be PRN, or sooner if needed. Patient Instructions: Scribed for Lynnette Ramirez PA-C by Brii Kirkpatrick medical equipment repair technician, on 10/04/2023 at 9:55 am, EST. Coding Level of Care Code Est Pt Level 3 (76234) Diagnoses Primary osteoarthritis of knees, bilateral M17.0 CPT Codes Coding - Large joint: 28569 - Large joint ([id number])
== END 2023-10-04 10:12 | disposition home or self-care (01) ==
PROVIDERS: PCP Internal Medicine; Visit Provider Physician Assistant
DX: M17.0 Bilateral primary osteoarthritis of knee (principal)
CPT/HCPCS: 20610

== ENCOUNTER → 2023-10-04 09:52 | Outpatient (BNVA) | payer MEDICARE, SELFPAY | PROVIDERS: PCP Internal Medicine; Visit Provider Physician Assistant | DX: M17.0 Bilateral primary osteoarthritis of knee (principal) | CPT/HCPCS: 20610; J1040 ==

== ENCOUNTER 2024-02-29 11:01 | Outpatient (AMB) | payer MEDICARE, SELFPAY ==
--- NOTE | 2024-02-29 11:11 | MHC.OFFVIS ---
Intake Visit Reasons: OV-B/L knee injection-last injection 10/04/23 Intake Note: Winnie is a 73 year old female who presents today for a repeat injections for her bilateral knee injections, last injections 10/04/23. Patient reports that her last injections gave her a good amount of relief. Allergies Latex, Natural Rubber Allergy (Mild, Verified 02/29/24 11:11) Rash HPI HPI OV-B/L knee injection-last injection 10/04/23: Details: 73-year-old female who presents in the office today for a follow-up of bilateral knee pain. I last saw the patient in the office on 10/04/2023 when she was given bilateral knee cortisone injections. While in the office today the patient reports her last injection gave her a good amount of relief. [facility] Medical History (Updated 04/09/23 @ 13:23 by Aurelia Hair MD) Annual physical exam Osteoarthritis, knee Ovarian cyst rupture Morbidly obese Hyperlipidemia HTN (hypertension) Dermatitis Surgical History (Updated 04/09/23 @ 13:32 by Aurelia Hair MD) History of appendectomy H/O colonoscopy Social History Housing: House Alcohol intake: current Alcohol intake frequency: does not drink Patient Tobacco Use Status: Never used Tobacco e-Cigarette/Vaping Use: Never Used Current occupational status: retired Cognitive needs: No Hearing needs: No Vision needs: Yes Review of Systems Const All systems reviewed & are unremarkable except as noted in HPI and below Physical Exam Const General: cooperative, healthy appearing and no acute distress Resp Effort & Inspection: normal respiratory effort and able to speak in complete sentences Cardio Rate: regular rate Peripheral pulses: Peripheral pulses 2+ throughout GI Palpation (GI): Soft to palpation Skin Lesions: no lesions Rashes: no rashes Extrem Other: Bilateral knees: Normal to inspection. No ecchymosis, erythema, or joint effusion. Crepitus felt with ROM. ROM is 0 to 110. NVI. Assessment & Plan Assessment & Plan (1) Primary osteoarthritis of knees, bilateral: Code(s): M17.0 - Bilateral primary osteoarthritis of knee Category: Medical Plan Ms. Cade is a 73-year-old female who presents in the office today for a follow-up of bilateral knee pain. I last saw the patient in the office on 10/04/2023 when she was given bilateral knee cortisone injections. While in the office today the patient reports her last injection gave her a good amount of relief. The patient was offered a cortisone injection in the bilateral knees with 80 mg of DepoMedrol. The patient was explained the risk, benefits, and alternatives to receiving this injection. After receiving consent for the injection, the patient had the procedure done while in the office today. The patient tolerated the procedure well with no complications. Follow-up will be PRN, or sooner if needed. Patient Instructions: Scribed by Brii Kirkpatrick medical research tech, for Lynnette Ramirez PA-C on 02/29/2024 at 11:06 am, EST. Coding Level of Care Code Est Pt Level 3 (12779) Diagnoses Primary osteoarthritis of knees, bilateral M17.0
== END 2024-02-29 11:27 | disposition home or self-care (01) ==
PROVIDERS: PCP Internal Medicine; Visit Provider Physician Assistant
DX: M17.0 Bilateral primary osteoarthritis of knee (principal)
CPT/HCPCS: 20610; 99213

== ENCOUNTER → 2024-02-29 11:01 | Outpatient (BNVA) | payer MEDICARE, SELFPAY | PROVIDERS: PCP Internal Medicine; Visit Provider Physician Assistant | DX: M17.0 Bilateral primary osteoarthritis of knee (principal) | CPT/HCPCS: 20610; 99212; J1010 ==

== ENCOUNTER 2024-03-04 10:02 | Outpatient (REF) | payer MEDICARE, SELFPAY | END 2024-03-04 10:03 | disposition home or self-care (01) | LOC: HO.MAMMO 10:02 | PROVIDERS: PCP Internal Medicine; Visit Provider Internal Medicine | DX: Z12.31 Encounter for screening mammogram for malignant neoplasm of breast (principal) | CPT/HCPCS: 77063; 77067 ==

== ENCOUNTER → 2024-03-04 10:45 | Outpatient (BNV) | payer MEDICARE, SELFPAY | PROVIDERS: PCP Internal Medicine; Visit Provider Radiology Diagnostic Radiology | DX: Z12.31 Encounter for screening mammogram for malignant neoplasm of breast (principal) | CPT/HCPCS: 77063; 77067 ==

== ENCOUNTER 2024-05-13 08:04 | Outpatient (AMB) | payer MEDICARE, SELFPAY ==
[2024-05-13 08:08] VITALS: BP 124/78; PULSE 64; O2SAT 98; BMI 39.2
--- NOTE | 2024-05-13 08:08 | MHC.PC.OV ---
Vital Signs 05/13/24 08:08 Height 5 ft 6 in Weight 243 lb BMI 39.2 BP 124/78 Blood Pressure Location Lt brachial Position Sitting Pulse 64 Pulse Source Pulse Oximeter Pulse Oximetry (%) 98 Oxygen Delivery Method Room Air Intake Visit Reasons: Annual Physical Intake Note: Pt is here today for PE. Allergies Latex, Natural Rubber Allergy (Mild, Verified 05/13/24 08:13) Rash Medication List - Last Reconciled 05/13/24 by Aurelia Hair MD diclofenac sodium 75 mg PO Q12H PRN hydrochlorothiazide 25 mg PO DAILY lisinopril 20 mg PO DAILY lovastatin 20 mg PO DAILY weevbndd-jfo-mffba [id number] 120 mcg- 37.5 mg (Alive Women's Gummy Vitamin) 1 tab PO DAILY pqntweou-dbnl-jmwqo-oreg-capry 100 mg-150 mg- 50 mg-150 mg 1 cap PO DAILY vitamin B complex (B Complex-Vitamin B12 tablet) 1 tab PO DAILY vitamin E (dl, acetate) 45 mg PO DAILY Tobacco use date assessed: 05/13/24 Fall risk assessment: No Falls in past year Last assessed Fall Risk: 05/13/24 Dental Screening Dental Screen Date: 05/13/24 Did you have a dental visit in the last 12 months?: Yes Did you have a dental problem in the last 6 months where you did not have access to dental care?: No Was dental information given to patient?: Patient has dentist HPI Annual Physical HPI Details Patient presents for physical. She complains of bilateral knee pain and stiffness. she has been getting cortisone injection for advanced osteoarthritis every 3 months. Patient reports that effect of the injection does not last 3 months. She was told that she can get knee replacement surgery but needs to lose more weight. Patient has been cutting down on caloric intake, trying to be more physically active for least 6 months and has not been able to lose significant weight. She is interested in trying GLP 1 agonist injection. [facility] Medical History Annual physical exam Osteoarthritis, knee Ovarian cyst rupture Morbidly obese Hyperlipidemia HTN (hypertension) Dermatitis Surgical History History of appendectomy H/O colonoscopy Social History Housing: House Alcohol intake: current Alcohol intake frequency: does not drink Patient Tobacco Use Status: Never used Tobacco e-Cigarette/Vaping Use: Never Used service: No Current occupational status: retired Cognitive needs: No Hearing needs: No Vision needs: Yes Questionnaire PHQ-9 Over the last 2 weeks, how often have you been bothered by any of the following problems? 1. Little interest or pleasure in doing things: not at all 2. Feeling down, depressed, or hopeless: not at all 3. Trouble falling or staying asleep, or sleeping too much: several days 4. Feeling tired or having little energy: several days 5. Poor appetite or overeating: not at all 6. Feeling bad about yourself - or that you are a failure or have let yourself or your family down: not at all 7. Trouble concentrating on things, such as reading the newspaper or watching television: not at all 8. Moving or speaking so slowly that other people could have noticed. Or the opposite - being so fidgety or restless that you have been moving around a lot more than usual: not at all 9. Thoughts that you would be better off or of hurting yourself in some way: not at all Total score: 2 Depression Screening Interpretation: Negative Depression Screening Done: Yes 79717 - PHQ-9 Billing: Yes Source: Developed by Drs. Jaron Anderson, Sandi Anton, Shaggy Wiggins and colleagues, with an educational arvind from [employer]. Thrive Questionnaire Date Thrive assessed: 05/13/24 I am a: Patient What is your living situation today?: I have a steady place to live Within the past 12 months, did the food you bought not last and you didn't have the money to get more?: Never true Within the past 12 months, did you worry whether your food would run out before you got money to buy more?: Never true Do you have trouble paying for medicines?: No Do you have trouble getting transportation to medical appointments?: No Do you have trouble paying your heating and electricity bill?: No Do you have trouble taking care of your child, family member or friend?: No Do you have trouble with day-to-day activities such as bathing, preparing meals, shopping, managing finances, etc.?: No Are you currently unemployed and looking for a job?: No Are you interested in more education?: No Please select the resources that you would like help with: None Currently or been in a relationship where the following occur: I choose not to answer THRIVE Score: 0 AUDIT C Alcohol Use Questionnaire (AUDIT-C) 1. How often do you have a drink containing alcohol?: Never 3. How often do you have six or more drinks on one occasion?: Never Total Score: 0 KIRSTY-7 AMB Questionnaire KIRSTY-7 Date KIRSTY - 7 assessed: 05/13/24 Feeling nervous, anxious, or on edge: 0 = Not at all Not being able to stop or control worryin = Not at all Worrying too much about different things: 0 = Not at all Trouble relaxin = Not at all Being so restless that it is hard to sit still: 0 = Not at all Becoming easily annoyed or irritable: 0 = Not at all Feeling afraid as if something awful might happen: 0 = Not at all Total KIRSTY-7 score (0-4 normal; 5-9 mild; 10-14 moderate; 15-21 severe): 0 Source: Developed by Drs. Jaron Anderson, Sandi Anton, Shaggy Wiggins and colleagues, with an educational arvind from [employer]. KIRSTY-7 Assessment Billing KIRSTY-7 Assessment Tool: KIRSTY-7 Assessment 78234 Review of Systems Const All systems reviewed & are unremarkable except as noted in HPI and below Reports no additional complaints Eyes Reports no additional complaints ENT Reports no additional complaints Card Reports no additional complaints Resp Reports no additional complaints GI Reports no additional complaints Reports no additional complaints Physical exam (Primary Care) Vital Signs: Last Vital Signs Pulse 64 05/13/24 08:08 BP 124/78 05/13/24 08:08 Pulse Ox 98 05/13/24 08:08 Oxygen Delivery Method Room Air 05/13/24 08:08 BMI result Body Mass Index 39.2 Tobacco/Smoking Status: Tobacco use Status Tobacco use date assessed 05/13/24 05/13/24 08:18 Patient Tobacco Use Status Never used Tobacco 05/13/24 08:18 e-Cigarette/Vaping Use Never Used 05/13/24 08:09 PHQ-9: PHQ-9 Score PHQ-9: Total score 2 05/13/24 08:18 Depression Screening Interpretation: Negative Thrive Assessment: Date of Thrive Assessment Date Thrive assessed 05/13/24 05/13/24 08:18 Currently or been in a relationship where the following occur: I choose not to answer Const General: no acute distress HENMT Head: Yes normal to inspection Ears: hearing grossly normal bilaterally Face and sinus: Yes normal facial exam Mouth: Normal oral and palatal mucosa present Teeth and gingiva: dentition normal Throat: Yes posterior oropharynx normal Eyes General: appearance normal, both eyes and all related structures Neck Neck: Yes no lymphadenopathy and Yes supple Resp Effort & Inspection: normal respiratory effort Auscultation: clear to auscultation bilaterally Cardio Rhythm: regular rhythm Heart sounds: S1 normal heart sound present and S2 normal heart sound present GI Inspection: Yes normal to inspection Palpation (GI): Soft to palpation Percussion: Yes normal to percussion Auscultation: normal bowel sounds Assessment and Plan Assessment & Plan (1) HTN (hypertension): Code(s): I10 - Essential (primary) hypertension Plan: cont meds (2) Hyperlipidemia: Code(s): E78.5 - Hyperlipidemia, unspecified Plan: cont statin (3) Annual physical exam: Code(s): Z00.00 - Encounter for general adult medical examination without abnormal findings Plan: Well-balanced diet regular exercise discussed with the patient she is up-to-date with mammogram colonoscopy DEXA will be scheduled (4) Primary osteoarthritis of knees, bilateral: Code(s): M17.0 - Bilateral primary osteoarthritis of knee Plan: Follow-up with ortho, referred to PT (5) Morbidly obese: Code(s): E66.01 - Morbid (severe) obesity due to excess calories Plan: Decreasing caloric intake increase physical activity discussed with the patient Wegovy will be tried for 2 months and then patient will follow-up to monitor her weight loss (6) Vitamin D deficiency: Code(s): E55.9 - Vitamin D deficiency, unspecified Plan: Continue vitamin-D. Orders: Orders Complete Blood Count Auto Diff Today E55.9 - Vitamin D deficiency, unspecified, E66.01 - Morbid (severe) obesity due to excess calories, E78.5 - Hyperlipidemia, unspecified, I10 - Essential (primary) hypertension, M17.0 - Bilateral primary osteoarthritis of knee, Z00.00 - Encounter for general adult medical examination without abnormal findings Vitamin B12 and Folate Today E55.9 - Vitamin D deficiency, unspecified, E66.01 - Morbid (severe) obesity due to excess calories, E78.5 - Hyperlipidemia, unspecified, I10 - Essential (primary) hypertension, M17.0 - Bilateral primary osteoarthritis of knee, Z00.00 - Encounter for general adult medical examination without abnormal findings UA w Microscopic Today E55.9 - Vitamin D deficiency, unspecified, E66.01 - Morbid (severe) obesity due to excess calories, E78.5 - Hyperlipidemia, unspecified, I10 - Essential (primary) hypertension, M17.0 - Bilateral primary osteoarthritis of knee, Z00.00 - Encounter for general adult medical examination without abnormal findings XR DEXA axial skeleton Today E55.9 - Vitamin D deficiency, unspecified, E66.01 - Morbid (severe) obesity due to excess calories, E78.5 - Hyperlipidemia, unspecified, I10 - Essential (primary) hypertension, M17.0 - Bilateral primary osteoarthritis of knee, Z00.00 - Encounter for general adult medical examination without abnormal findings Lipid Panel 1 Year E55.9 - Vitamin D deficiency, unspecified, E78.5 - Hyperlipidemia, unspecified, I10 - Essential (primary) hypertension Complete Blood Count Auto Diff 1 Year E55.9 - Vitamin D deficiency, unspecified, E78.5 - Hyperlipidemia, unspecified, I10 - Essential (primary) hypertension TSH reflex Free T4 1 Year E55.9 - Vitamin D deficiency, unspecified, E78.5 - Hyperlipidemia, unspecified, I10 - Essential (primary) hypertension Vitamin B12 and Folate 1 Year E55.9 - Vitamin D deficiency, unspecified, E78.5 - Hyperlipidemia, unspecified, I10 - Essential (primary) hypertension PT Evaluation and Treatment Today M17.0 - Bilateral primary osteoarthritis of knee Comprehensive [place]. Panel Fast Today E55.9 - Vitamin D deficiency, unspecified, E66.01 - Morbid (severe) obesity due to excess calories, E78.5 - Hyperlipidemia, unspecified, I10 - Essential (primary) hypertension, M17.0 - Bilateral primary osteoarthritis of knee, Z00.00 - Encounter for general adult medical examination without abnormal findings Lipid Panel Today E55.9 - Vitamin D deficiency, unspecified, E66.01 - Morbid (severe) obesity due to excess calories, E78.5 - Hyperlipidemia, unspecified, I10 - Essential (primary) hypertension, M17.0 - Bilateral primary osteoarthritis of knee, Z00.00 - Encounter for general adult medical examination without abnormal findings TSH reflex Free T4 Today E55.9 - Vitamin D deficiency, unspecified, E66.01 - Morbid (severe) obesity due to excess calories, E78.5 - Hyperlipidemia, unspecified, I10 - Essential (primary) hypertension, M17.0 - Bilateral primary osteoarthritis of knee, Z00.00 - Encounter for general adult medical examination without abnormal findings Vitamin D 25-OH Total Today E55.9 - Vitamin D deficiency, unspecified, E66.01 - Morbid (severe) obesity due to excess calories, E78.5 - Hyperlipidemia, unspecified, I10 - Essential (primary) hypertension, M17.0 - Bilateral primary osteoarthritis of knee, Z00.00 - Encounter for general adult medical examination without abnormal findings Comprehensive [place]. Panel Fast 1 Year E55.9 - Vitamin D deficiency, unspecified, E78.5 - Hyperlipidemia, unspecified, I10 - Essential (primary) hypertension Medications: New Wegovy (semaglutide (weight loss)) administer weeks 1 through 4 of therapy, then 0.5 mg q weekly 0.25 mg (0.5 mL) subcut QWEEK 2 mL 1RF NS Wegovy (semaglutide (weight loss)) administer weeks 1 through 4 of therapy, then 0.5 mg q weekly 0.25 mg (0.5 mL) subcut QWEEK 2 mL 1RF NS Refilled lisinopril 20 mg PO DAILY 90 tabs 3RF lovastatin 20 mg PO DAILY 90 tabs 3RF hydrochlorothiazide 25 mg PO DAILY 90 tabs 3RF Coding Level of Care Code Est Pt Prev Care >65y(84138) Diagnoses HTN (hypertension) I10 Hyperlipidemia E78.5 Annual physical exam Z00.00 Primary osteoarthritis of knees, bilateral M17.0 Morbidly obese E66.01 Vitamin D deficiency E55.9 Additional Codes KIRSTY-7 Assessment Billing - KIRSTY-7 Assessment Tool: KIRSTY-7 Assessment 92915 ([id number])
== END 2024-05-13 08:55 | disposition home or self-care (01) ==
PROVIDERS: PCP Internal Medicine; Visit Provider Internal Medicine
DX: Z00.00 Encounter for general adult medical examination without abnormal findings (principal); E66.01 Morbid (severe) obesity due to excess calories; Z68.39 Body mass index [BMI] 39.0-39.9, adult; I10 Essential (primary) hypertension; E78.5 Hyperlipidemia, unspecified; M17.0 Bilateral primary osteoarthritis of knee; E55.9 Vitamin D deficiency, unspecified
CPT/HCPCS: 99397

== ENCOUNTER 2024-05-13 08:52 | Outpatient (REF) | payer MEDICARE, SELFPAY ==
[2024-05-13 10:29] LABS: MANUAL DIFF FLAG NO
[2024-05-13 10:34] LABS: Basophils Absolute Auto 0.1 X10*3/uL (0.0-0.2); Basophils Percent Auto 0.6 % (0-2); Eosinophils Absolute Auto 0.2 X10*3/uL (0.0-0.4); Hematocrit 36.1 % (37.0-47.0); Hemoglobin 11.9 g/dl (12.0-16.0); Imm Gran Abs Auto 0.03 X10*3/uL (0.00-0.03); Imm Gran Pct Auto 0.4 % (0.0-0.4); Lymphocytes Absolute Auto 2.1 X10*3/uL (1.2-4.9); Lymphocytes Percent Auto 25.1 % (20-40); Mean Corpuscular Hemoglobin 30.5 pg (27.0-33.0); Mean Corpuscular Volume 92.6 fL (80.0-98.0); Mean Platelet Volume 10.4 fL (9.4-12.3); Monocytes Absolute Auto 0.5 X10*3/uL (0.1-1.2); Monocytes Percent Auto 5.7 % (2-11); Neutrophils Absolute Auto 5.6 x10*3/uL (2.0-8.3); Neutrophils Percent Auto 66.2 % (45-73); Platelet Count 297 X10*3/uL (160-400); Red Cell Distribution Width 14.7 % (11.0-16.0); White Blood Count 8.4 X10*3/uL (4.8-10.8)
[2024-05-13 10:55] LABS: Appearance Urine Clear; Color Urine Yellow; Glucose Urine UA Negative (Negative); Leukocyte Esterase Urine Small (1+) (Negative); Nitrite Urine Negative (Negative); UMIC TRIGGER UA YES; Urine Blood Negative (Negative); Urine Ketones Negative (Negative); Urine Protein Negative (Neg-Trace)
[2024-05-13 11:02] LABS: Alanine Aminotransferase 11 U/L (0-31); Albumin Level 3.9 g/dL (3.5-5.0); Alkaline Phosphatase 64 U/L (39-117); Anion Gap 11 (12-20); Aspartate Amino Transferase 12 U/L (5-31); Bilirubin Total 0.5 mg/dL (0.0-1.0); Blood Urea Nitrogen 16 mg/dL (9-16); Calcium 9.8 mg/dL (8.4-10.2); Carbon Dioxide 30 mmol/L (22-29); Chloride 104 mmol/L (96-108); Cholesterol 179 mg/dL (<200); Estimated Glomerular Filt Rate > 60; Glucose Fasting 91 mg/dL (60-99); HDL Cholesterol 40 mg/dL (>40); LDL Cholesterol Calculated 105 mg/dL (<100); Potassium 3.3 mmol/L (3.3-5.1); Sodium 142 mmol/L (135-145); Total Protein 6.7 g/dL (6.5-8.0); Triglycerides 172 mg/dL (<150)
[2024-05-13 11:12] LABS: Bacteria Urine Trace (None Seen); RBC Urine 0-2 /HPF (0-2); WBC Urine 0-5 /HPF (0-5)
[2024-05-13 11:21] LABS: Folate 10.3 ng/mL (> or = 4.0); TSH reflex Free T4 0.21 uIU/mL (0.32-4.0); Vitamin B12 249 pg/mL (200-900); Vitamin D 25-OH Total 38.8 ng/mL (>30)
[2024-05-13 11:59] LABS: Free T4 (Free Thyroxine) 0.95 ng/dL (0.71-1.85)
== END 2024-05-13 08:53 | disposition home or self-care (01) ==
LOC: HO.HMGCLDS 08:52
PROVIDERS: PCP Internal Medicine; Visit Provider Internal Medicine
DX: Z00.00 Encounter for general adult medical examination without abnormal findings (principal); I10 Essential (primary) hypertension; E78.5 Hyperlipidemia, unspecified; M17.0 Bilateral primary osteoarthritis of knee; E55.9 Vitamin D deficiency, unspecified; E66.01 Morbid (severe) obesity due to excess calories
CPT/HCPCS: 36415; 80053; 80061; 81001; 82306; 82607; 82746; 84439; 84443; 85025

== ENCOUNTER 2024-05-16 12:11 | Outpatient (REF) | payer MEDICARE, SELFPAY ==
[2024-05-16 14:16] LABS: Iron 74 mcg/dL (30-160); Percent Iron Saturation 31 % (15-50); Total Iron Binding Capacity 239 mcg/dL (228-428); Unsaturated Iron Binding 165 ug/dL
[2024-05-16 14:37] LABS: Folate 11.6 ng/mL (> or = 4.0); Vitamin B12 258 pg/mL (200-900)
== END 2024-05-16 12:12 | disposition home or self-care (01) ==
LOC: HO.HMGCLDS 12:11
PROVIDERS: PCP Internal Medicine; Visit Provider Internal Medicine
DX: D64.9 Anemia, unspecified (principal)
CPT/HCPCS: 36415; 82607; 82746; 83540

== ENCOUNTER 2024-06-03 12:16 | Outpatient (AMB) | payer MEDICARE, SELFPAY ==
--- NOTE | 2024-06-03 12:24 | MHC.OFFVIS ---
Vital Signs 06/03/24 12:47 Height 5 ft 6 in Weight 243 lb BMI 39.2 Intake Visit Reasons: B/L knee injections, last inj 02/29/24 Intake Note: Winnie is a 73 year old female who presents today for a repeat injections for her bilateral knees, last injections 02/29/24. Patient reports her last injections didn't give her much relief but she would like to try one last time. She is considering surgery and what that in tails. Allergies Latex, Natural Rubber Allergy (Mild, Verified 06/03/24 12:32) Rash HPI HPI B/L knee injections, last inj 02/29/24: Details: 73-year-old female who presents in the office today for a follow-up of bilateral knee pain. I last saw the patient in the office on 02/29/24 when she received cortisone injections in the bilateral knees. ? ? While in the office today, the patient reports the last injection did not give her much relief, however, she would like to try one more time. ? [facility] Medical History Annual physical exam Osteoarthritis, knee Ovarian cyst rupture Morbidly obese Hyperlipidemia HTN (hypertension) Dermatitis Surgical History History of appendectomy H/O colonoscopy Social History Housing: House Alcohol intake: current Alcohol intake frequency: does not drink Patient Tobacco Use Status: Never used Tobacco e-Cigarette/Vaping Use: Never Used service: No Current occupational status: retired Cognitive needs: No Hearing needs: No Vision needs: Yes Review of Systems Const All systems reviewed & are unremarkable except as noted in HPI and below Physical Exam Vital Signs: BMI result Body Mass Index 39.2 Const General: cooperative, healthy appearing and no acute distress Resp Effort & Inspection: normal respiratory effort and able to speak in complete sentences Cardio Rate: regular rate Peripheral pulses: Peripheral pulses 2+ throughout GI Palpation (GI): Soft to palpation Skin Lesions: no lesions Rashes: no rashes Extrem Other: Bilateral knees: Normal to inspection. No ecchymosis, erythema, or joint effusion. Crepitus felt with ROM. ROM is 0 to 110. NVI. Office Procedures Joint Injection/Aspiration Joint Injection/Aspiration Primary Site: right knee Secondary Site: left knee Prep: site was prepped using aseptic technique, ethochloride spray was applied and injection warnings given Injected: 80 mg of, DepoMedrol, with 8 mL of (2% plain lido ) and in the joint Approach Used: anterolateral Procedure: The patient tolerated the procedure well, but had some pain with the injection and there was some relief with the local anesthesia Coding - Large joint Procedure code (CPT) selection complete Assessment & Plan Assessment & Plan (1) Primary osteoarthritis of knees, bilateral: Code(s): M17.0 - Bilateral primary osteoarthritis of knee Category: Medical Plan Ms. Cade is a 73-year-old female who presents in the office today for a follow-up of bilateral knee pain. I last saw the patient in the office on 02/29/24 when she received cortisone injections in the bilateral knees. ? ? While in the office today, the patient reports the last injection did not give her much relief, however, she would like to try one more time.? ? The patient was offered a cortisone injection in the bilateral knees with 80 mg of Depo-Medrol. The patient was explained the risks, benefits, and alternatives to receiving this injection. After receiving consent for the injection, the patient had the procedure done while in the office today. The patient tolerated the procedure well with no complications.? ? We discuss a total knee arthroplasty while in the office today. The patient reports the left knee is worse then the right knee. She is interested in proceeding in Spring 2024. She would like to further discuss the procedure and repeat injections with Dr. Rodríguez. We discussed her BMI which was 39.2 at her appointment with her PCP on 05/13/24. Therefore, her follow-up will be in [address] Rodríguez to discuss a total knee arthroplasty and repeat bilateral knee cortisone injections, or sooner if needed. Patient Instructions: Scribed by Brii Kirkpatrick medical laboratory specialist, for Lynnette Ramirez PA-C on 06/03/2024 at 12:35 pm, EST.? Coding Level of Care Code Est Pt Level 4 (20242) Diagnoses Primary osteoarthritis of knees, bilateral M17.0 CPT Codes Coding - Large joint: 98835 - Large joint ([id number])
[2024-06-03 12:47] VITALS: BMI 39.2
== END 2024-06-03 15:50 | disposition home or self-care (01) ==
PROVIDERS: PCP Internal Medicine; Visit Provider Physician Assistant
DX: M17.0 Bilateral primary osteoarthritis of knee (principal)
CPT/HCPCS: 20610; 99214

== ENCOUNTER → 2024-06-03 12:16 | Outpatient (BNVA) | payer MEDICARE, SELFPAY | PROVIDERS: PCP Internal Medicine; Visit Provider Physician Assistant | DX: M17.0 Bilateral primary osteoarthritis of knee (principal) | CPT/HCPCS: 20610; 99212; J1010 ==

== ENCOUNTER 2024-06-11 12:57 | Outpatient (REF) | payer MEDICARE, SELFPAY ==
--- NOTE | ~2024-06-11 | MM_ITS ---
EXAMINATION: BONE DENSITOMETRY CLINICAL INDICATION: Essential primary hypertension. COMPARISON: Baseline BD dated 09/03/2018. TECHNIQUE: Using a [employer] Spine DXA System (software version: 13.1) manufactured by [employer], dual-energy x-ray absorptiometry was performed of the lumbar spine and left hip. The images are of good technical quality. Summary results are attached. FINDINGS: LEFT FEMUR, NECK: Current: BMD 1.056 g/cm2, Z-score 1.2, T-score 0.1, normal. Baseline: BMD 1.055 g/cm2. LEFT FEMUR, TOTAL: Current: BMD 1.004 g/cm2, Z-score 0.8, T-score 0.0, normal, 5.0% decrease from baseline (<5% change is not significant). Baseline: BMD 1.057 g/cm2. AP SPINE L1-L4: Current: BMD 1.451 g/cm2, Z-score 2.8, T-score 2.3, normal. 3.1% increase from baseline (<5% change is not significant). Baseline: BMD 1.407 g/cm2. IDENTIFIED RISK FACTORS: Menopause, height loss, glucocorticoids (chronic), right oophorectomy. HISTORY OF FRACTURE: None listed. MEDICATIONS: None listed. MM/XR DEXA axial skeleton IMPRESSION: 1. DIAGNOSIS: Normal bone density based on the lowest T-score value of 0.0 in the total femur applying World Health Organization criteria. 2. 10-YEAR FRACTURE RISK PREDICTION, FRAX: According to the guidelines, FRAX calculation should only be performed on patients in the osteopenia bone density category. Therefore, FRAX was not performed on this patient. 3. Treatment Recommendations: NOF guidelines recommend consideration for treatment in postmenopausal women and men age 50 and older presenting with the following: -A hip or vertebral (clinical or morphometric) fracture. -T-score less than or equal to -2.5 at the femoral neck or spine after appropriate evaluation to exclude secondary causes. -Low bone mass at the hip or spine and a 10-year fracture probability by FRAX of greater than or equal to 3% for hip fracture or greater than or equal to 20% for major osteoporotic fracture based on the [place] adapted WHO algorithm. 4. Other Recommendations: All treatment decisions require clinical judgment and consideration of individual patient factors, including patient preferences, comorbidities, previous drug use, risk factors not captured in the FRAX model (e.g. frailty, falls, vitamin D deficiency, increased bone turnover, interval significant decline in bone density) and possible under or overestimation of fracture risk by FRAX. FUTURE SCAN RECOMMENDATION: People with diagnosed cases of osteoporosis or at high risk for fracture should have regular bone mineral density tests. For patients eligible for Medicare, routine testing is allowed once every 2 years. The testing frequency can be increased to one year for patients who have rapidly progressing disease, those who are receiving or discontinuing medical therapy to restore bone mass, or have additional risk factors. Electronically signed by: Dawna Tineo MD 06/24/2024 08:44 AM EDT
== END 2024-06-11 12:58 | disposition home or self-care (01) ==
LOC: HO.MAMMO 12:57
PROVIDERS: PCP Internal Medicine; Visit Provider Internal Medicine
DX: Z13.820 Encounter for screening for osteoporosis (principal); Z78.0 Asymptomatic menopausal state
CPT/HCPCS: 77080

== ENCOUNTER 2024-06-25 13:00 | Outpatient (RCR) | payer MEDICARE, SELFPAY ==
--- NOTE | 2024-06-11 11:11 | MHC.PT.EP ---
[facility] [place] Office [place] Office [place] Office [address] Lawrence Aguilera [address] [phone] F: [phone] F: [phone] F: [phone] F: [phone] Physical Therapy Plan of Care Date of Evaluation: 06/11/24 Date of Surgery: Diagnosis: bilateral primary OA of knees Assessment: Patient is a 73 year old R handed female who presents with s/s consistent with bilateral knee OA, bilateral knee pain. She does not work and is fairly sedentary during the day as a result. Patient past medical history includes chronic OA and obesity. Current impairments include pain, balance, ROM, strength, activity tolerance and functional mobility. Functional limitations include decreased ability to walk, stand, negotiate stairs, go into community, and be on feet to perform any tasks. Patient is motivated with good rehab potential. Skilled PT will address impairments and functional limitations in order to achieve goals. Frequency and Duration: The patient will be seen 1x/week for 5 weeks Short Term Goals: I with HEP - 2 weeks AROM 0-105 - 3 weeks Able to walk 10 minutes 3/10 pain max -3 weeks Pastry Finisher Goals: b/l knees 0-115 - 5 weeks LEFS 38/80 - 5 weeks Strength 4/5 grossly - 5 weeks Step up/down with 1 HH assist max pain 2/10 - 5 weeks Treatment Plan: Modalities to reduce pain, spasms and effusion. Manual therapy to restore motion and function. Therapeutic exercise to improve strength and flexibility. Neuromuscular re-education for posture and balance. Therapeutic activities to return to functional activities of daily living. Electronically signed by: Myron Knox, PT Please sign and return to therapist. Thank you for your referral.
--- NOTE | 2024-12-05 12:30 | MHC.PT.DC ---
[facility] [place] Office [place] Office [place] Office [address] Lawrence Aguilera [address] [phone] F: [phone] F: [phone] F: [phone] F: [phone] Physical Therapy Discharge Report Diagnosis: bilateral primary OA of knees Date of Surgery: Date of Evaluation: 06/11/24 Date of Discharge: 08/07/24 Treatments to Date: 2 Cancellations to Date: No Shows to Date: Discharge Status: Improved Function Independent with HEP Patient Elected to Stop Discharge Summary: 06/25/24: pt leaving next week for the winter. we updated and reviewed HEP. pt questions answered. we will d/c to HEP at this time. 06/17/24: pt progressing well with skilled PT. added SAQ and SLR to HEP today and will assess response NV. some discomfort noted on stepper today. Patient is a 73 year old R handed female who presents with s/s consistent with bilateral knee OA, bilateral knee pain. She does not work and is fairly sedentary during the day as a result. Patient past medical history includes chronic OA and obesity. Current impairments include pain, balance, ROM, strength, activity tolerance and functional mobility. Functional limitations include decreased ability to walk, stand, negotiate stairs, go into community, and be on feet to perform any tasks. Patient is motivated with good rehab potential. Skilled PT will address impairments and functional limitations in order to achieve goals. Electronically signed by: Myron Knox, PT Please sign and return to therapist. Thank you for your referral.
== END 2024-12-05 12:30 | disposition home or self-care (01) ==
LOC: HO.PTCHIC 13:00
PROVIDERS: PCP Internal Medicine; Visit Provider Internal Medicine
DX: M17.0 Bilateral primary osteoarthritis of knee (principal)
CPT/HCPCS: 97110; 97162

== ENCOUNTER 2024-10-02 12:36 | Outpatient (AMB) | payer MEDICARE, SELFPAY ==
--- NOTE | 2024-10-02 12:44 | MHC.OFFVIS ---
Intake Visit Reasons: OV- B/L knee OA - Discuss Left TKA Intake Note: Winnie is a 73 year old female who presents today, referred by Lynnette Ramirez, to discuss Left Total Knee Arthroplasty. Bilateral knees last injected 06/03/24, Bilateral Supartz inj 05/26/2020. Patient reports that the gel injections are not helpful at all and the cortisone injections have become less effective over time. She would like to discuss TKA - [place] and is hoping to discuss TKA for December and have repeat cortisone today She is also requesting a refill of Diclofenac to be sent to [facility] Allergies Latex, Natural Rubber Allergy (Mild, Verified 06/03/24 12:32) Rash HPI HPI OV- B/L knee OA - Discuss Left TKA: Details: Winnie is a 73 year old female who presents today, referred by Lynnette Ramirez, to discuss Left Total Knee Arthroplasty. Bilateral knees last injected 06/03/24, Bilateral Supartz inj 05/26/2020. Patient reports that the gel injections are not helpful at all and the cortisone injections have become less effective over time. She would like to discuss TKA - she [place] and is hoping to discuss TKA for December and have repeat cortisone today. She feels limited in her ability to actively engage in daily activities. Her left knee is more painful than her right knee. She feels that her ambulatory capacity is limited and the quality of her life suffers as a consequence. She is also requesting a refill of Diclofenac to be sent to [facility] Medical History Annual physical exam Osteoarthritis, knee Ovarian cyst rupture Morbidly obese Hyperlipidemia HTN (hypertension) Dermatitis Surgical History History of appendectomy H/O colonoscopy Social History Housing: House Alcohol intake: current Alcohol intake frequency: does not drink Patient Tobacco Use Status: Never used Tobacco e-Cigarette/Vaping Use: Never Used service: No Current occupational status: retired Cognitive needs: No Hearing needs: No Vision needs: Yes Physical Exam Extrem Other: 110 degrees of bilateral flexion with tenderness to palpation medial compartment left greater than right. She has moderate lymphedema of left lower extremity with a warm and well-perfused foot bilaterally. Office Procedures Joint Inj/Aspir; Non-Pain Clin Joint Injection/Drain Details: Injected 1 mL of Decadron and 3 mL 1% lidocaine and 3 mL of 0.25% Marcaine. Site was prepped using aseptic technique. Patient tolerated the procedure well. Shoulders, Hips, Knees, Knee Large Joint Injection : Right Knee Coding Procedure code (CPT) selection complete Results Reviewed Results Reviewed: I personally reviewed relevant radiographs. Severe bilateral knee OA left greater right. Assessment & Plan Assessment & Plan (1) Primary osteoarthritis of knees, bilateral: Code(s): M17.0 - Bilateral primary osteoarthritis of knee Category: Medical Plan: This is a 73-year-old woman with bilateral knee OA left greater than right. She has tried and failed conservative treatment and her ambulatory capacity is limited. Her arthritis is severe on radiographs and I recommend left knee replacement. She has some moderate venous static changes that are chronic on the lower legs and might be reasonable to get an ADELAIDE prior to surgery but I suspect that this will be negative. I discussed this with her and I will order it. In addition I will contact our nurse navigator and begin the preoperative clearance process. I discussed the risks, benefits and alternatives with the patient including, but not limited to the risk of infection, stiffness, fracture, need for further surgery as well as many patients associated with surgery. She expressed understanding and we will proceed forward accordingly. Of note I did inject her right knee as we will not be operating on this within 6 months' time. Orders: Orders XR knee RT 1V Today M25.569 - Pain in unspecified knee XR knee LT 3V Today M25.562 - Pain in left knee US ADELAIDE complete Today M17.0 - Bilateral primary osteoarthritis of knee Coding Level of Care Code Est Pt Level 4 (53336) Diagnoses Primary osteoarthritis of knees, bilateral M17.0 CPT Codes Shoulders, Hips, Knees, - Knee Large Joint Injection : Right Knee ([id number])
== END 2024-10-02 13:34 | disposition home or self-care (01) ==
PROVIDERS: PCP Internal Medicine; Visit Provider Orthopaedic Surgery
DX: M17.0 Bilateral primary osteoarthritis of knee (principal)
CPT/HCPCS: 20610; 99214

== ENCOUNTER 2025-01-08 10:35 | Outpatient (REF) | payer MEDICARE, SELFPAY ==
--- NOTE | ~2025-01-08 | US_ITS ---
CLINICAL HISTORY: M17.0 - Bilateral primary osteoarthritis of knee, hyperlipidemia ADELAIDE with segmental pressures Comparison: None Findings: Right: Brachial: >200 mmHg Posterior tibial: >200 mmHg, noncompressible Dorsalis pedis: >200 mmHg, noncompressible Left: Brachial: >200 mmHg Posterior tibial: >200 mmHg, noncompressible Dorsalis pedis: >200 mmHg, noncompressible Impression: >200 mmHg at both ankles, non compressible arteries possibly due to calcification. Consider toe-brachial index assessment. This document has been electronically signed by: Elmo Maddox MD on 01/14/2025 02:15:03
--- OUTSIDE RECORDS SUMMARY | 2025-01-08 12:19 | XMS_ITS | Patient Health Record ---
Author Organization [facility] us Address [address] [facility] [address] [place] [address] Care Team Providers Care Product Applications Scientist Name Role Phone Unknown, Unknown Primary Care Provider Unavailab le Allergies No Known Allergies Reason For Referral No Information Medications Medication SIG (Take, Route, Fr equency, Duration) Notes Start Date End Date Status hydroCHLOROthiazide Active Lisinopril Active Lovastatin Active Problems Problem Type SNOMED Code ICD Code Onset Dates Problem Status W/U Status Risk Notes Problem Exposure to COVID-19 (847206750) Exposure to COVID-19 virus (Z20.828) Active confirmed Plan Of Treatment No Information Insurance Providers Payer Name Payer Address Payer Phone Subscriber Number Group Number Insured Name Patient Relationship to Insured Coverage Start Date Coverage End Date [facility] [address] [place] [address] [phone] [id number] NEY [id number] Self - patient is the insured Medical (General) History Medical History History ICD Code HIGH BLOOD PRESSURE
== END 2025-01-08 10:36 | disposition home or self-care (01) ==
LOC: HO.US 10:35
PROVIDERS: PCP Internal Medicine; Visit Provider Ophthalmology
DX: Z01.818 Encounter for other preprocedural examination (principal); I87.8 Other specified disorders of veins; M17.0 Bilateral primary osteoarthritis of knee; E78.5 Hyperlipidemia, unspecified
CPT/HCPCS: 93923

== ENCOUNTER → 2025-01-08 10:38 | Outpatient (BNV) | payer MEDICARE, SELFPAY | PROVIDERS: PCP Internal Medicine; Visit Provider Radiology Diagnostic Radiology | DX: M17.0 Bilateral primary osteoarthritis of knee (principal); E78.5 Hyperlipidemia, unspecified | CPT/HCPCS: 93923 ==

== ENCOUNTER 2025-01-16 10:02 | Outpatient (AMB) | payer MEDICARE, SELFPAY ==
[2025-01-16 10:40] VITALS: BP 124/74; PULSE 63; RESP 18; TEMP 37.1; O2SAT 96; BMI 37.4
--- NOTE | 2025-01-16 10:40 | MHC.PC.OV ---
Vital Signs 01/16/25 10:40 Height 5 ft 6 in Weight 232 lb BMI 37.4 BP 124/74 Blood Pressure Location Lt brachial Position Sitting Respiration 18 Pulse 63 Pulse Source Pulse Oximeter Temp 98.7 F Temp Source Oral Pulse Oximetry (%) 96 Oxygen Delivery Method Room Air Intake Visit Reasons: Pre op L TKA on 03/03/25 Dr. Rodríguez Intake Note: Pt is here today for pre op visit. Pt is having L TKA surgery on 03/03/[address] Rodríguez. Allergies Latex, Natural Rubber Allergy (Mild, Verified 01/16/25 10:48) Rash Tobacco use date assessed: 01/16/25 Fall risk assessment: No Falls in past year Last assessed Fall Risk: 01/16/25 Dental Screening Dental Screen Date: 01/16/25 Did you have a dental visit in the last 12 months?: Yes Did you have a dental problem in the last 6 months where you did not have access to dental care?: No Was dental information given to patient?: Patient has dentist HPI Pre op L TKA on 03/03/25 Dr. Rodríguez HPI Details Patient presents for the preop for left total knee arthroplasty. Hypertension hyperlipidemia are controlled on current medications. Patient did not try GLP 1 agonist for weight loss. She has been decreasing caloric intake increasing physical activity trying to lose weight. Patient denies chest pain shortness or breath palpitations PND or orthopnea. [facility] Medical History Primary osteoarthritis of knees, bilateral Positive colorectal cancer screening using Cologuard test Annual physical exam Osteoarthritis, knee Ovarian cyst rupture Morbidly obese Hyperlipidemia HTN (hypertension) Dermatitis Surgical History History of appendectomy H/O colonoscopy Social History Housing: House Alcohol intake: current Alcohol intake frequency: does not drink Patient Tobacco Use Status: Never used Tobacco e-Cigarette/Vaping Use: Never Used service: No Current occupational status: retired Cognitive needs: No Hearing needs: No Vision needs: Yes Questionnaire PHQ-9 Over the last 2 weeks, how often have you been bothered by any of the following problems? 1. Little interest or pleasure in doing things: not at all 2. Feeling down, depressed, or hopeless: not at all 3. Trouble falling or staying asleep, or sleeping too much: not at all 4. Feeling tired or having little energy: not at all 5. Poor appetite or overeating: not at all 6. Feeling bad about yourself - or that you are a failure or have let yourself or your family down: not at all 7. Trouble concentrating on things, such as reading the newspaper or watching television: not at all 8. Moving or speaking so slowly that other people could have noticed. Or the opposite - being so fidgety or restless that you have been moving around a lot more than usual: not at all 9. Thoughts that you would be better off or of hurting yourself in some way: not at all Total score: 0 Depression Screening Interpretation: Negative Depression Screening Done: Yes 82943 - PHQ-9 Billing: Yes Source: Developed by Drs. Jaron Anderson, Sandi Anton, Shaggy Wiggins and colleagues, with an educational arvind from [employer]. Thrive Questionnaire Date Thrive assessed: 01/16/25 I am a: Patient What is your living situation today?: I have a steady place to live Within the past 12 months, did the food you bought not last and you didn't have the money to get more?: Never true Within the past 12 months, did you worry whether your food would run out before you got money to buy more?: Never true Do you have trouble paying for medicines?: No Do you have trouble getting transportation to medical appointments?: No Do you have trouble paying your heating and electricity bill?: No Do you have trouble taking care of your child, family member or friend?: No Do you have trouble with day-to-day activities such as bathing, preparing meals, shopping, managing finances, etc.?: No Are you currently unemployed and looking for a job?: No Are you interested in more education?: No Please select the resources that you would like help with: None Currently or been in a relationship where the following occur: No concerns reported THRIVE Score: 0 AUDIT C Alcohol Use Questionnaire (AUDIT-C) 1. How often do you have a drink containing alcohol?: Never 3. How often do you have six or more drinks on one occasion?: Never Total Score: 0 KIRSTY-7 AMB Questionnaire KIRSTY-7 Date KIRSTY - 7 assessed: 01/16/25 Feeling nervous, anxious, or on edge: 0 = Not at all Not being able to stop or control worryin = Not at all Worrying too much about different things: 0 = Not at all Trouble relaxin = Not at all Being so restless that it is hard to sit still: 0 = Not at all Becoming easily annoyed or irritable: 0 = Not at all Feeling afraid as if something awful might happen: 0 = Not at all Total KIRSTY-7 score (0-4 normal; 5-9 mild; 10-14 moderate; 15-21 severe): 0 Source: Developed by Drs. Jaron Anderson, Sandi Anton, Shaggy Wiggins and colleagues, with an educational arvind from [employer]. KIRSTY-7 Assessment Billing KIRSTY-7 Assessment Tool: KIRSTY-7 Assessment 95956 Review of Systems Const All systems reviewed & are unremarkable except as noted in HPI and below Eyes Reports no additional complaints ENT Reports no additional complaints Card Reports no additional complaints Resp Reports no additional complaints GI Reports no additional complaints Reports no additional complaints Physical exam (Primary Care) Vital Signs: Last Vital Signs Temp 98.7 F 01/16/25 10:40 Pulse 63 01/16/25 10:40 Resp 18 01/16/25 10:40 BP 124/74 01/16/25 10:40 Pulse Ox 96 01/16/25 10:40 Oxygen Delivery Method Room Air 01/16/25 10:40 BMI result Body Mass Index 37.4 Tobacco/Smoking Status: Tobacco use Status Tobacco use date assessed 01/16/25 01/16/25 10:49 Patient Tobacco Use Status Never used Tobacco 01/16/25 10:49 e-Cigarette/Vaping Use Never Used 01/16/25 10:41 PHQ-9: PHQ-9 Score PHQ-9: Total score 0 01/16/25 10:49 Depression Screening Interpretation: Negative Thrive Assessment: Date of Thrive Assessment Date Thrive assessed 01/16/25 01/16/25 10:49 Currently or been in a relationship where the following occur: No concerns reported Const General: no acute distress HENMT Head: Yes normal to inspection Face and sinus: Yes normal facial exam Throat: Yes posterior oropharynx normal Eyes General: appearance normal, both eyes and all related structures Neck Neck: Yes no lymphadenopathy and Yes supple Resp Effort & Inspection: normal respiratory effort Auscultation: clear to auscultation bilaterally Cardio Rhythm: regular rhythm Heart sounds: S1 normal heart sound present and S2 normal heart sound present GI Inspection: Yes normal to inspection Palpation (GI): Soft to palpation Percussion: Yes normal to percussion Auscultation: normal bowel sounds Immunizations pneumoc 20-mayur conj-dip cr(PF) 0.5 mL IM syringe Performing Provider: Aurelia Hair MD Performing Location: [facility] Administered by: TACO Lakhani on 01/16/25 11:25 Dose Route Admin Location Dispensed Lot Number Expiration Date [facility] Melter Loader 0.5 mL IM Left Deltoid 0.5 mL [id number] 11/14/25 [id number] Application Security/Pigit VIS Given Date VIS Provided VIS Publication Date 01/16/25 Single Vaccine 21 Eligibility Eligibility Date Funding Source Not [facility] Eligible 01/16/25 Private Coding Level of Care Code Est Pt Level 4 (01915) Diagnoses Primary osteoarthritis of knees, bilateral M17.0 HTN (hypertension) I10 Hyperlipidemia E78.5 Vitamin D deficiency E55.9 Anemia D64.9 Additional Codes KIRSTY-7 Assessment Billing - KIRSTY-7 Assessment Tool: KIRSTY-7 Assessment 98648 ([id number]) PHQ-9 - 93237 - PHQ-9 Billing: Yes ([id number]) Assessment & Plan Assessment & Plan (1) Primary osteoarthritis of knees, bilateral: Comment: left>right Code(s): M17.0 - Bilateral primary osteoarthritis of knee Category: Medical Plan: Patient is medically cleared for left knee total arthroplasty (2) HTN (hypertension): Code(s): I10 - Essential (primary) hypertension Category: Medical Plan: Continue current medications and return for fasting blood work (3) Hyperlipidemia: Code(s): E78.5 - Hyperlipidemia, unspecified Category: Medical Plan: Continue statin (4) Vitamin D deficiency: Code(s): E55.9 - Vitamin D deficiency, unspecified Category: Medical Plan: Continue vitamin-D. (5) Anemia: Code(s): D64.9 - Anemia, unspecified Category: Medical Plan: Check CBC iron count and B12 level Orders: Orders Comprehensive [place]. Panel Fast Today D64.9 - Anemia, unspecified, E55.9 - Vitamin D deficiency, unspecified, E78.5 - Hyperlipidemia, unspecified, I10 - Essential (primary) hypertension Lipid Panel Today D64.9 - Anemia, unspecified, E55.9 - Vitamin D deficiency, unspecified, E78.5 - Hyperlipidemia, unspecified, I10 - Essential (primary) hypertension TSH reflex Free T4 Today D64.9 - Anemia, unspecified, E55.9 - Vitamin D deficiency, unspecified, E78.5 - Hyperlipidemia, unspecified, I10 - Essential (primary) hypertension Vitamin B12 and Folate Today D64.9 - Anemia, unspecified, E55.9 - Vitamin D deficiency, unspecified, E78.5 - Hyperlipidemia, unspecified, I10 - Essential (primary) hypertension IRON PROFILE Today D64.9 - Anemia, unspecified, E55.9 - Vitamin D deficiency, unspecified, E78.5 - Hyperlipidemia, unspecified, I10 - Essential (primary) hypertension Complete Blood Count Auto Diff Today D64.9 - Anemia, unspecified, E55.9 - Vitamin D deficiency, unspecified, E78.5 - Hyperlipidemia, unspecified, I10 - Essential (primary) hypertension PT Evaluation and Treatment Today D64.9 - Anemia, unspecified, E55.9 - Vitamin D deficiency, unspecified, E78.5 - Hyperlipidemia, unspecified, I10 - Essential (primary) hypertension, M17.0 - Bilateral primary osteoarthritis of knee
--- OUTSIDE RECORDS SUMMARY | 2025-01-16 11:01 | XMS_ITS | Patient Health Record ---
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 Name Role Phone Unknown, Unknown Primary Care Provider Unavailab le Allergies No Known Allergies Reason For Referral No Information Medications Medication SIG (Take, Route, Fr equency, Duration) Notes Start Date End Date Status hydroCHLOROthiazide Active Lisinopril Active Lovastatin Active Problems Problem Type SNOMED Code ICD Code Onset Dates Problem Status W/U Status Risk Notes Problem Exposure to COVID-19 virus (Z20.828) Active confirmed Plan Of Treatment No Information Insurance Providers Payer Name Payer Address Payer Phone Subscriber Number Group Number Insured Name Patient Relationship to Insured Coverage Start Date Coverage End Date [facility] [address] [place] [address] [id number] NEY ARVIZU Self - patient is the insured Medical (General) History Medical History History ICD Code HIGH BLOOD PRESSURE
== END 2025-01-16 11:30 | disposition home or self-care (01) ==
LOC: HO.HMCC 10:02
PROVIDERS: Visit Provider Internal Medicine
DX: M17.0 Bilateral primary osteoarthritis of knee (principal); I10 Essential (primary) hypertension; E78.5 Hyperlipidemia, unspecified; E55.9 Vitamin D deficiency, unspecified; D64.9 Anemia, unspecified; Z23 Encounter for immunization

== ENCOUNTER → 2025-01-16 10:02 | Outpatient (BNVA) | payer MEDICARE, SELFPAY | PROVIDERS: Visit Provider Internal Medicine | DX: I10 Essential (primary) hypertension (principal); E78.5 Hyperlipidemia, unspecified; M17.0 Bilateral primary osteoarthritis of knee; E55.9 Vitamin D deficiency, unspecified; D64.9 Anemia, unspecified; Z23 Encounter for immunization | CPT/HCPCS: 90471; 90677; 96127; 99212 ==

== ENCOUNTER 2025-01-20 08:04 | Outpatient (REF) | payer MEDICARE, SELFPAY ==
--- OUTSIDE RECORDS SUMMARY | 2025-01-20 08:09 | XMS_ITS | Patient Health Record ---
Author Organization [facility] us Address [address] [place] [address] Care Team Providers Care Control Equipment Electrician Name Role Phone Unknown, Unknown Primary Care [...] Insured Coverage Start Date Coverage End Date [facility] [address] [place] [address] [phone] [id number] NEY ARVIZU Self - patient is the insured Medical (General) History Medical History History ICD Code HIGH BLOOD PRESSURE
[2025-01-20 10:31] LABS: MANUAL DIFF FLAG NO
[2025-01-20 10:47] LABS: Basophils Percent Auto 0.5 % (0-2); Eosinophils Absolute Auto 0.3 X10*3/uL (0.0-0.4); Eosinophils Percent Auto 3.6 % (0-4); Hematocrit 35.7 % (37.0-47.0); Hemoglobin 11.5 g/dl (12.0-16.0); Imm Gran Abs Auto 0.02 X10*3/uL (0.00-0.03); Imm Gran Pct Auto 0.3 % (0.0-0.4); Lymphocytes Absolute Auto 1.8 X10*3/uL (1.2-4.9); Lymphocytes Percent Auto 22.7 % (20-40); Mean Corpuscular HGB Conc 32.2 g/dl (31.0-35.0); Mean Corpuscular Hemoglobin 30.2 pg (27.0-33.0); Mean Corpuscular Volume 93.7 fL (80.0-98.0); Mean Platelet Volume 10.3 fL (9.4-12.3); Monocytes Absolute Auto 0.4 X10*3/uL (0.1-1.2); Monocytes Percent Auto 5.7 % (2-11); Neutrophils Absolute Auto 5.2 x10*3/uL (2.0-8.3); Neutrophils Percent Auto 67.2 % (45-73); Platelet Count 268 X10*3/uL (160-400); Red Blood Count 3.81 X10*6/uL (4.20-5.50); Red Cell Distribution Width 14.5 % (11.0-16.0); White Blood Count 7.8 X10*3/uL (4.8-10.8)
[2025-01-20 11:36] LABS: Alanine Aminotransferase 11 U/L (0-31); Albumin Level 3.7 g/dL (3.5-5.0); Alkaline Phosphatase 62 U/L (39-117); Anion Gap 9 (12-20); Aspartate Amino Transferase 16 U/L (5-31); Bilirubin Total 0.5 mg/dL (0.0-1.0); Blood Urea Nitrogen 22 mg/dL (9-16); Calcium 9.2 mg/dL (8.4-10.2); Carbon Dioxide 32 mmol/L (22-29); Chloride 106 mmol/L (96-108); Cholesterol 151 mg/dL (<200); Estimated Glomerular Filt Rate > 60; Glucose Fasting 81 mg/dL (60-99); Iron 46 mcg/dL (30-160); Percent Iron Saturation 21 % (15-50); Potassium 3.8 mmol/L (3.3-5.1); Sodium 143 mmol/L (135-145); TSH reflex Free T4 0.29 uIU/mL (0.32-4.0); Total Iron Binding Capacity 214 mcg/dL (228-428); Total Protein 6.3 g/dL (6.5-8.0); Triglycerides 125 mg/dL (<150); Unsaturated Iron Binding 168 ug/dL
[2025-01-20 11:49] LABS: Folate 14.3 ng/mL (> or = 4.0); Vitamin B12 443 pg/mL (200-900)
[2025-01-20 12:23] LABS: HDL Cholesterol 40 mg/dL (>40); LDL Cholesterol Calculated 86 mg/dL (<100)
[2025-01-20 12:46] LABS: Free T4 (Free Thyroxine) 0.99 ng/dL (0.71-1.85)
== END 2025-01-20 08:05 | disposition home or self-care (01) ==
LOC: HO.HMGCLDS 08:04
PROVIDERS: PCP Internal Medicine; Visit Provider Internal Medicine
DX: I10 Essential (primary) hypertension (principal); E78.5 Hyperlipidemia, unspecified; E55.9 Vitamin D deficiency, unspecified; D64.9 Anemia, unspecified
CPT/HCPCS: 36415; 80053; 80061; 82607; 82746; 83540; 84439; 84443; 85025

== ENCOUNTER → 2025-01-27 08:49 | Outpatient (BNVA) | payer MEDICARE, SELFPAY | DX: Z01.818 Encounter for other preprocedural examination (principal) ==

== ENCOUNTER 2025-02-03 | Outpatient (REF) | payer MEDICARE, SELFPAY ==
--- OUTSIDE RECORDS SUMMARY | 2024-12-23 08:19 | XMS_ITS | Patient Health Record ---
Author Organization [facility] us Address [address] [facility] [address] [place] [address] Care Team Providers Care Machine Maintenance Repairer Name Role Phone Unknown, Unknown Primary Care Provider Unavailab le Allergies No Known Allergies Reason For Referral No Information Medications Medication SIG (Take, Route, Fr equency, Duration) Notes Start Date End Date Status hydroCHLOROthiazide Active Lisinopril Active Lovastatin Active Problems Problem Type SNOMED Code ICD Code Onset Dates Problem Status W/U Status Risk Notes Problem Exposure to COVID-19 (131840429) Exposure to COVID-19 virus (Z20.828) Active confirmed Plan Of Treatment No Information Insurance Providers Payer Name Payer Address Payer Phone Subscriber Number Group Number Insured Name Patient Relationship to Insured Coverage Start Date Coverage End Date [facility] [employer] [address] [place] [address] [id number] NEY [id number] Self - patient is the insured Medical (General) History Medical History History ICD Code HIGH BLOOD PRESSURE
--- NOTE | 2025-02-03 | ECG_ITS ---
Test Reason : PREOP Blood Pressure : */* mmHG Vent. Rate : 64 BPM Atrial Rate : 64 BPM P-R Int : 162 ms QRS Dur : 86 ms QT Int : 402 ms P-R-T Axes : 29 33 49 degrees QTcB Int : 414 ms Normal sinus rhythm Normal ECG No previous ECGs available Referred By: Ami Chawla Electronically Signed By: Srinivas Dye
[2025-02-03 12:52] VITALS: BP 136/61; PULSE 71; RESP 16; O2SAT 97; BMI 37.6
--- NOTE | 2025-02-03 13:35 | HO.ANESPROP2 ---
HPI - Anesthesia Eval Consult details Narrative: 74yo F for Left Knee Replacement Total, 03/03/25 Medically optimized per PCP No recent illness No CP/SOB with grocery shopping - limited by knee pain Moderate + Stop-Bang PMFSH Active Problems Active Problems: All Active Problems Venous stasis of both lower extremities (Acute) Cataract (Acute) Vision decreased (Acute) Postmenopausal (Acute) Anemia (Acute) Vitamin D deficiency (Acute) Annual physical exam (Acute) Morbidly obese (Acute) HTN (hypertension) (Acute) Hyperlipidemia (Acute) Positive colorectal cancer screening using Cologuard test (Acute) Primary osteoarthritis of knees, bilateral (Acute) Annual physical exam (Acute) Osteoarthritis, knee (Acute) Past Medical History Medical History (Updated 02/03/25 @ 13:25 by Doreen Spicer RN) Hx of dermatomyositis Macular degeneration Environmental allergies Seasonal allergies Positive colorectal cancer screening using Cologuard test Primary osteoarthritis of knees, bilateral Annual physical exam Osteoarthritis, knee Ovarian cyst rupture Morbidly obese Hyperlipidemia HTN (hypertension) Family History Family history of problems with anesthesia: No Surgical History Surgical History (Updated 02/03/25 @ 12:52 by Doreen Spicer RN) Hx laparoscopic cholecystectomy History of appendectomy H/O colonoscopy History of Problems with Anesthesia: No Social History Social History (Updated 02/03/25 @ 13:28 by Doreen Spicer, MICH) Household Members: Spouse Housing: House Are you a primary coronary care unit nurse to a significant other at home: No Do you presently have visiting nurse or other home services: No 75 years or older and lives alone: No Alcohol intake: current Alcohol intake frequency: holidays/special occasions only Comment: aware of trip hazards Patient Tobacco Use Status: Never used Tobacco e-Cigarette/Vaping Use: Never Used service: No Current occupational status: retired Cognitive needs: No Hearing needs: No Vision needs: Yes Meds Allergies Allergy/AdvReac Type Severity Reaction Status Date / Time Latex, Natural Rubber Allergy Severe Rash Verified 02/03/25 13:10 Home Medications ?Medication ?Instructions ?Recorded ?Confirmed ?Last Taken ?Type vitamin B complex (B 1 tab PO DAILY 12/26/22 02/03/25 Unknown History Complex-Vitamin B12 tablet) vitamin E (dl, acetate) 45 mg (100 45 mg PO DAILY 12/26/22 02/03/25 Unknown History unit) capsule acetaminophen 325 mg tablet 650 mg PO Q6H PRN Pain 02/03/25 02/03/25 Unknown History diphenhydramine HCl 25 mg tablet 25 mg PO TID PRN Allergy Symptoms 02/03/25 02/03/25 Unknown History (Benadryl Allergy) docusate sodium 100 mg capsule 100 mg PO DAILY 02/03/25 02/03/25 Unknown History (Colace) turmeric 125 mg-noreen root 6 tab PO 02/03/25 Unknown History mg-black pepper 50 mcg chewable tablet vit C 250 mg-vit E 90 mg-zinc 40 1 tab PO BID 02/03/25 02/03/25 Unknown History mg-copper 1 oo-dbssum-lkoqyy capsule (PreserVision AREDS-2) Exam Height,Weight and Vital Signs: Height 5 ft 6 in Weight 105.687 kg Last Vital Signs Pulse 71 02/03/25 12:52 Resp 16 02/03/25 12:52 BP 136/61 02/03/25 12:52 Pulse Ox 97 02/03/25 12:52 O2 Del Method Room Air 02/03/25 12:52 Airway TM Dist: >3cm Neck ROM: Full Loose/Missing/Broken Teeth: Yes (#7 broken, Crowned front teeth) Heart: RRR Lungs: CTAB Assessment and Plan Assessment Anesthesia Assessment: Anesthesia Plan Discussed and PAT Visit Final Anesthetic Review Family History of Problems with Anesthesia: No History of Problems with Anesthesia: No
[2025-02-03 15:34] LABS: MRSA Nasal PCR NEGATIVE (Negative); SA Nasal PCR NEGATIVE (Negative)
--- OUTSIDE RECORDS SUMMARY | 2025-03-17 07:10 | XMS_ITS | Patient Health Record ---
Author Organization [facility] us Address [address] [facility] [address] [place] [address] Care Team Providers Care Account Executive Name Role Phone Unknown, Unknown Primary Care [...] Coverage Start Date Coverage End Date [facility] [address] [place] [address] [id number] NEY ARVIZU Self - patient is the insured Medical (General) History Medical History History ICD Code HIGH BLOOD PRESSURE
== END 2025-02-03 00:01 | disposition home or self-care (01) ==
LOC: HO.PAT
PROVIDERS: Physician Assistant; PCP Internal Medicine; Visit Provider Orthopaedic Surgery
DX: Z01.810 Encounter for preprocedural cardiovascular examination (principal); M17.0 Bilateral primary osteoarthritis of knee
CPT/HCPCS: 87640; 87641; 93005

== ENCOUNTER → 2025-02-03 14:24 | Outpatient (BNV) | payer MEDICARE, SELFPAY | PROVIDERS: PCP Internal Medicine; Visit Provider Internal Medicine Cardiovascular Disease | DX: Z01.818 Encounter for other preprocedural examination (principal) | CPT/HCPCS: 93010 ==

== ENCOUNTER 2025-02-24 13:09 | Outpatient (AMB) | payer MEDICARE, SELFPAY ==
[2025-02-24 13:44] VITALS: BMI 37.4
--- NOTE | 2025-02-24 13:44 | A.OFFVIS_ITS ---
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 Pt is scheduled for Left knee replacement next Monday March 03, 2025. Pt states she has swelling in Left worse than Right LE. STates she has difficulty wearing shoes. States the swelling comes in bouts w/ or w/o ambulation. Started a few years ago. 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 She was actually seen by Orthopedics and was scheduled for left total knee arthroplasty. She reports experiencing leg discoloration and intermittent swelling in her legs. The swelling varies, sometimes appearing upon waking and persisting for a few days before subsiding. Despite no discernible triggers, she notes no consistent pattern linked to activities or dietary changes. She endeavors to lose weight and manage her sugar intake, although she has never been diagnosed with diabetes, and denies any tobacco use. She mentions a familial diabetes history on her mother's side but has never been advised of any personal blood sugar issues. Recently, an ultrasound was conducted that proved inconclusive due to swelling, and she has been referred for further evaluation by a vascular surgeon. [facility] Medical History Hx of dermatomyositis Macular degeneration Environmental allergies Seasonal allergies Positive colorectal cancer screening using Cologuard test Primary osteoarthritis of knees, bilateral Annual physical exam Osteoarthritis, knee Ovarian cyst rupture Morbidly obese Hyperlipidemia HTN (hypertension) Surgical History Hx laparoscopic cholecystectomy History of appendectomy H/O colonoscopy Social History Household Members: Spouse Housing: House Are you a primary child care coordinator to a significant other at home: No Do you presently have visiting nurse or other home services: No Alcohol intake: current Alcohol intake frequency: holidays/special occasions only Comment: aware of trip hazards Patient Tobacco Use Status: Never used Tobacco e-Cigarette/Vaping Use: Never Used Use of substances other than those prescribed or required for medical reasons: No Have you been hit, kicked, punched, or otherwise hurt by someone within the past year? If so, by whom?: No Are you DNR?: No Advance Directives: No Advance Directives Information Provided: Yes Advance Directives on File: No Poor oral hygiene: No service: No Current occupational status: retired Cognitive needs: No Hearing needs: No Vision needs: Yes Review of Systems Const All systems reviewed & are unremarkable except as noted in HPI and below Reports no additional complaints ENT Reports Normal hearing present Card Denies chest pain, Denies chest pain at rest, Denies chest pain with activity and Denies pedal edema Resp Denies cough GI Denies abdominal pain Musc Denies abnormal gait, Denies muscle cramps and Denies radiating pain into limb Skin/Breast Denies skin ulcer and Denies wounds Neuro Reports Normal hearing present and Denies abnormal gait Psych Reports no additional complaints Physical Exam Vital Signs: BMI result Body Mass Index 37.4 Const General: cooperative, healthy appearing and comfortable Orientation/consciousness: oriented to person, oriented to place and oriented to time HEENT Head: Yes normal to inspection Neck Neck: Yes normal visual inspection Carotids: no bruits Chest Chest palpation & inspection: normal inspection of the chest Resp Effort & Inspection: normal respiratory effort and able to speak in complete sentences Auscultation: clear to auscultation bilaterally, no crackles, no rales, no rhonchi and no wheezes Cardio Other: Bilateral DP signals Rate: regular rate Rhythm: regular rhythm Heart sounds: S1 normal heart sound present and S2 normal heart sound present Bruits: no carotid bruits GI Inspection: Yes normal to inspection Skin Wounds: no wounds Hair: normal Neuro General: oriented to person, oriented to place and oriented to time Cranial nerves: Yes CN's II-XII intact bilaterally and Yes Normal hearing present Cognition (Neuro): normal cognition Motor exam (neuro): 5/5 motor strength present throughout Extrem Other: venous exam: +2 edema General: No clubbing, No cyanosis and Yes edema Psych Appearance: grossly normal Mental Status: mental status grossly normal Speech and movement: Normal speech and movement present Results Reviewed Results Reviewed: Ultrasound dated 01/08/2025 demonstrates noncompressibility of arteries and unable to get a good ADELAIDE. Written report and images were reviewed. Assessment & Plan Assessment & Plan (1) PAD (peripheral artery disease): Code(s): I73.9 - Peripheral vascular disease, unspecified Category: Medical Plan: Unfortunately her non invasive testing was nondiagnostic. I do think obtaining a CT angiogram would be prudent in light of the knee surgery scheduled. We did discuss pathophysiology of peripheral vascular disease and risk factor reduction as well. She will follow up with us after CT angiogram. Will need to hold off on orthopedic intervention until evaluation is complete. (2) Lymphedema: Code(s): I89.0 - Lymphedema, not elsewhere classified Category: Medical Plan: Clearly has an element of lymphedema symptomatically. I do think this may be exacerbated once she undergoes left knee surgery. This was discussed in detail with the patient and was made aware of treatment options for lymphedema as well. Once again we will work her up for her arterial status and proceed from there. Thank you for allowing us to assist in her care. Plan Patient was informed and verbally consented to the use of an ambient scribe for clinic note documentation during this visit. Orders: Orders Blood Urea Nitrogen Today I73.9 - Peripheral vascular disease, unspecified Creatinine Today I73.9 - Peripheral vascular disease, unspecified CT angio abd aorta runoff 1 Week I73.9 - Peripheral vascular disease, unspecified Patient Instructions: - Schedule blood work to check kidney function before the CAT scan. - Await hospital call to schedule a CAT scan. - Expect potential rescheduling of knee surgery based on scan results. - Use compression therapy for leg swelling management. - Keep the scheduled appointment with Dr. Rodríguez office. Coding Level of Care Code Est Pt Level 4 (78976) Diagnoses PAD (peripheral artery disease) I73.9 Lymphedema I89.0
--- OUTSIDE RECORDS SUMMARY | 2025-02-24 15:30 | XMS_ITS | Patient Health Record ---
Author Organization [facility] us Address [address] [place] [address] Care Team Providers Care Production Support Developer Name Role Phone Unknown, Unknown Primary Care Provider Unavailab le Allergies No Known Allergies Reason For Referral No Information Medications Medication SIG (Take, Route, Fr equency, Duration) Notes Start Date End Date Status hydroCHLOROthiazide Active Lisinopril Active Lovastatin Active Problems Problem Type SNOMED Code ICD Code Onset Dates Problem Status W/U Status Risk Notes Problem Exposure to COVID-19 (344616801) Exposure to COVID-19 virus (Z20.828) Active confirmed Plan Of Treatment No Information Insurance Providers Payer Name Payer Address Payer Phone Subscriber Number Group Number Insured Name Patient Relationship to Insured Coverage Start Date Coverage End Date [facility] [address] [place] [address] [phone] [id number] NEY ARVIZU Self - patient is the insured Medical (General) History Medical History History ICD Code HIGH BLOOD PRESSURE
== END 2025-02-24 14:07 | disposition home or self-care (01) ==
LOC: HO.HVS 13:09
PROVIDERS: PCP Internal Medicine; Visit Provider Surgery Vascular Surgery
DX: I73.9 Peripheral vascular disease, unspecified (principal); I89.0 Lymphedema, not elsewhere classified
CPT/HCPCS: 99214

== ENCOUNTER → 2025-02-24 13:09 | Outpatient (BNVA) | payer MEDICARE, SELFPAY | PROVIDERS: PCP Internal Medicine; Visit Provider Surgery Vascular Surgery | DX: I73.9 Peripheral vascular disease, unspecified (principal); I89.0 Lymphedema, not elsewhere classified | CPT/HCPCS: 99212 ==

== ENCOUNTER 2025-02-26 08:44 | Outpatient (AMB) | payer MEDICARE, SELFPAY ==
--- NOTE | 2025-02-26 08:56 | MHC.OFFVIS ---
Vital Signs 02/26/25 09:03 Height 5 ft 6 in Weight 232 lb BMI 37.4 Intake Visit Reasons: Pre-Op: L TKA w/NE 03/03/25 Intake Note: Winnie is a 74 year old female who presents for a preoperative visit of LT TKA on 03/03/[address] Rodríguez. Pain management agreement reviewed and signed. Allergies Latex, Natural Rubber Allergy (Severe, Verified 02/26/25 09:03) Rash HPI HPI Pre-Op: L TKA w/NE 03/03/25: Details: Patient is scheduled for a left total knee arthroplasty with Dr. Rodríguez on 03/03/2025. Patient had an appointment with Dr. Luu on 02/24/2025 at which point he recommended she cancel the procedure so he can perform further studies on her lower extremities. [facility] Medical History Hx of dermatomyositis Macular degeneration Environmental allergies Seasonal allergies Positive colorectal cancer screening using Cologuard test Primary osteoarthritis of knees, bilateral Annual physical exam Osteoarthritis, knee Ovarian cyst rupture Morbidly obese Hyperlipidemia HTN (hypertension) Surgical History Hx laparoscopic cholecystectomy History of appendectomy H/O colonoscopy Social History Household Members: Spouse Housing: House Are you a primary career representative to a significant other at home: No Do you presently have visiting nurse or other home services: No Alcohol intake: current Alcohol intake frequency: holidays/special occasions only Comment: aware of trip hazards Patient Tobacco Use Status: Never used Tobacco e-Cigarette/Vaping Use: Never Used Use of substances other than those prescribed or required for medical reasons: No Have you been hit, kicked, punched, or otherwise hurt by someone within the past year? If so, by whom?: No Are you DNR?: No Advance Directives: No Advance Directives Information Provided: Yes Advance Directives on File: No Poor oral hygiene: No service: No Current occupational status: retired Cognitive needs: No Hearing needs: No Vision needs: Yes Physical Exam Vital Signs: BMI result Body Mass Index 37.4 Assessment & Plan Assessment & Plan (1) Osteoarthritis, knee: Code(s): M17.10 - Unilateral primary osteoarthritis, unspecified knee Category: Medical Plan: Per Dr Luu, patient needs a CTA and further evaluation prior to total knee arthroplasty. Surgery is currently canceled and we will reschedule once clearances obtained. Orders: Orders Hemoglobin A1c Today M17.10 - Unilateral primary osteoarthritis, unspecified knee Type and Screen 25 Days Z01.818 - Encounter for other preprocedural examination Basic Metabolic Panel Today Z01.818 - Encounter for other preprocedural examination Complete Blood Count Auto Diff Today Z01.818 - Encounter for other preprocedural examination Coding Level of Care Code Est Pt Level 2 (33436) Diagnoses Osteoarthritis, knee M17.10
[2025-02-26 09:03] VITALS: BMI 37.4
--- OUTSIDE RECORDS SUMMARY | 2025-02-26 09:06 | XMS_ITS | Patient Health Record ---
Author Organization [facility] us Address [address] [place] [address] Care Team Providers Care Plumbers And Top Helpers Name Role Phone Unknown, Unknown Primary Care [...] Coverage Start Date Coverage End Date [facility] [address] [place] [address] [id number] NEY ARVIZU Self - patient is the insured Medical (General) History Medical History History ICD Code HIGH BLOOD PRESSURE
== END 2025-02-26 10:09 | disposition home or self-care (01) ==
LOC: HO.HOS 08:45
PROVIDERS: Visit Provider Physician Assistant
DX: M17.10 Unilateral primary osteoarthritis, unspecified knee (principal)
CPT/HCPCS: 99024

== ENCOUNTER → 2025-02-26 08:44 | Outpatient (BNVA) | payer MEDICARE, SELFPAY | PROVIDERS: Visit Provider Physician Assistant ==

== ENCOUNTER 2025-03-26 13:42 | Outpatient (REF) | payer MEDICARE, SELFPAY ==
--- OUTSIDE RECORDS SUMMARY | 2025-03-26 13:45 | XMS_ITS | Patient Health Record ---
Author Organization [facility] us Address [address] [place] [address] Care Team Providers Care Financial Systems Administrator Name Role Phone Unknown, Unknown Primary Care [...] Insured Coverage Start Date Coverage End Date [facility] [address] [place] [address] [id number] NEY ARVIZU Self - patient is the insured Medical (General) History Medical History History ICD Code HIGH BLOOD PRESSURE
[2025-03-26 16:38] LABS: Blood Urea Nitrogen 15 mg/dL (9-16); Estimated Glomerular Filt Rate > 60
== END 2025-03-26 13:43 | disposition home or self-care (01) ==
LOC: HO.HMGCLDS 13:42
PROVIDERS: PCP Internal Medicine; Visit Provider Surgery Vascular Surgery
DX: I73.9 Peripheral vascular disease, unspecified (principal)
CPT/HCPCS: 36415; 82565; 84520

== ENCOUNTER 2025-03-31 11:08 | Outpatient (REF) | payer MEDICARE, SELFPAY ==
--- OUTSIDE RECORDS SUMMARY | 2025-03-31 12:32 | XMS_ITS | Patient Health Record ---
Author Organization [facility] us Address [address] [place] [address] Care Team Providers Care Radiology Services Manager Name Role Phone Unknown, Unknown Primary Care Provider Unavailab le Allergies No Known Allergies Reason For Referral No Information Medications Medication SIG (Take, Route, Fr equency, Duration) Notes Start Date End Date Status hydroCHLOROthiazide Active Lisinopril Active Lovastatin Active Problems Problem Type SNOMED Code ICD Code Onset Dates Problem Status W/U Status Risk Notes Problem Exposure to COVID-19 (128191765) Exposure to COVID-19 virus (Z20.828) Active confirmed Plan Of Treatment No Information Insurance Providers Payer Name Payer Address Payer Phone Subscriber Number Group Number Insured Name Patient Relationship to Insured Coverage Start Date Coverage End Date [facility] [address] [place] [address] [phone] [id number] NEY ARVIZU Self - patient is the insured Medical (General) History Medical History History ICD Code HIGH BLOOD PRESSURE
== END 2025-03-31 11:09 | disposition home or self-care (01) ==
LOC: HO.MAMMO 11:08
PROVIDERS: PCP Internal Medicine; Visit Provider Internal Medicine
DX: Z12.31 Encounter for screening mammogram for malignant neoplasm of breast (principal)
CPT/HCPCS: 77063; 77067

== ENCOUNTER → 2025-03-31 11:30 | Outpatient (BNV) | payer MEDICARE, SELFPAY | PROVIDERS: PCP Internal Medicine; Visit Provider Internal Medicine | DX: Z12.31 Encounter for screening mammogram for malignant neoplasm of breast (principal) | CPT/HCPCS: 77063; 77067 ==

== ENCOUNTER 2025-04-02 08:34 | Outpatient (REF) | payer MEDICARE, SELFPAY ==
--- NOTE | ~2025-04-02 | CT_ITS ---
EXAMINATION: CT ABDOMINAL AORTA ANGIO BILATERAL RUNOFF WITH IV CONTRAST HISTORY: I73.9 - Peripheral vascular disease, unspecified COMPARISON: There are no prior studies for available comparison. TECHNIQUE: CT angiography of the abdominal aorta with bilateral lower extremity runoff was performed from the diaphragm through the feet following administration of 100 mL Omnipaque 350 using standard departmental protocol. The contrast bolus was timed to maximally opacify the arterial system. Coronal and sagittal reformatted images were generated and reviewed. This CT exam was performed with one or more of the following dose reduction techniques: automated exposure control, adjustment of the mA and/or kV according to patient size, use of iterative reconstruction technique. DLP: 968 mGy-cm FINDINGS: LOWER CHEST: The visualized lung bases are clear. There is no pleural effusion. CARDIOVASCULATURE: The heart is normal in size. There is no pericardial effusion. LIVER: The liver is normal in size and contour. There is a 1.1 cm ill-defined hypodensity in the left lobe which is difficult to characterize on this arterial phase examination. The hepatic and portal veins are patent. GALLBLADDER / BILE DUCTS: The gallbladder is surgically absent. There is no intra or extrahepatic biliary ductal dilatation. SPLEEN: The spleen is normal in size. No focal splenic lesion is identified. PANCREAS: The pancreas is unremarkable in appearance. ADRENAL GLANDS: The right adrenal gland is unremarkable. There are left adrenal nodules measuring 1.8 and 1.2 cm in size. KIDNEYS/RETROPERITONEUM: No renal calculi are identified. There is no hydronephrosis. There are probable bilateral renal cysts measuring 1.4 cm on the right and 2.5 cm on the left. LYMPH NODES: No abdominal or pelvic lymphadenopathy. VASCULATURE: The abdominal aorta is normal in caliber. The celiac axis and superior mesenteric arteries are patent. There is a probable moderate to severe focal stenosis of the origin of the right renal artery and a probable mild to moderate stenosis of the origin of the left renal artery. The bilateral common and external iliac arteries are widely patent. On the right, the superficial femoral and popliteal arteries are widely patent. There is three-vessel runoff in the calf. The posterior tibial artery crosses the ankle joint. The anterior tibial artery is difficult to follow due to its small size. On the left, the superficial femoral and popliteal arteries are widely patent. There is three-vessel runoff in the calf. The posterior tibial artery crosses the ankle joint. The anterior tibial artery is difficult to follow due to its small size. MESENTERY/PERITONEUM: No free fluid. No masses. There is no free intraperitoneal gas. STOMACH: The stomach is collapsed, limiting evaluation. SMALL BOWEL: The small bowel is normal in caliber. COLON: The colon is unremarkable. APPENDIX: The appendix is not seen, however no inflammatory changes are seen adjacent to the cecum. URINARY BLADDER/PELVIC ORGANS: The urinary bladder is collapsed, limiting evaluation. The uterus is unremarkable. BONES / SOFT TISSUES: There is degenerative disc disease of the spine. There is osteoarthritis of both knees. CT/CT angio abd aorta runoff IMPRESSION: 1. Patent bilateral common iliac, external iliac, common femoral, superficial femoral, and popliteal veins bilaterally. Three-vessel runoff is seen in both calves with the posterior tibial arteries crossing the ankle joints. There is limited visualization of the anterior tibial artery in the distal calves due to their small size. 2. Left adrenal nodules as described. In the absence of a known primary malignancy, these likely represent adenomas. Electronically signed by: Jaron Paris MD 04/02/2025 10:28 AM EDT
--- OUTSIDE RECORDS SUMMARY | 2025-04-02 08:40 | XMS_ITS | Patient Health Record ---
Author Organization [facility] us Address [address] [facility] [address] [place] [address] Care Team Providers Care Coffee Roaster Name Role Phone Unknown, Unknown Primary Care Provider Unavailab le Allergies No Known Allergies Reason For Referral No Information Medications Medication SIG (Take, Route, Fr equency, Duration) Notes Start Date End Date Status hydroCHLOROthiazide Active Lisinopril Active Lovastatin Active Problems Problem Type SNOMED Code ICD Code Onset Dates Problem Status W/U Status Risk Notes Problem Exposure to COVID-19 (475819382) Exposure to COVID-19 virus (Z20.828) Active confirmed Plan Of Treatment No Information Insurance Providers Payer Name Payer Address Payer Phone Subscriber Number Group Number Insured Name Patient Relationship to Insured Coverage Start Date Coverage End Date [facility] [address] [place] [address] [id number] NEY ARVIZU Self - patient is the insured Medical (General) History Medical History History ICD Code HIGH BLOOD PRESSURE
[2025-04-02] MEDS: iohexoL 350 MG/ML 100 ML INFUS..BTL IV (10:03)
== END 2025-04-02 08:35 | disposition home or self-care (01) ==
LOC: HO.CT 08:34
PROVIDERS: PCP Internal Medicine; Visit Provider Surgery Vascular Surgery
DX: I73.9 Peripheral vascular disease, unspecified (principal)
CPT/HCPCS: 75635; Q9967

== ENCOUNTER → 2025-04-02 08:36 | Outpatient (BNV) | payer MEDICARE, SELFPAY | PROVIDERS: PCP Internal Medicine; Visit Provider Radiology Diagnostic Radiology | DX: I73.9 Peripheral vascular disease, unspecified (principal) | CPT/HCPCS: 75635 ==

== ENCOUNTER 2025-04-30 12:50 | Outpatient (AMB) | payer MEDICARE, SELFPAY ==
--- NOTE | 2025-04-30 13:11 | MHC.OFFVIS ---
Intake Visit Reasons: follow up CTA runoff Intake Note: Patient presents for follow up CTA runoff performed on 04/02/25. No complaints. Accompanied by: Self / Same As Patient Allergies Latex, Natural Rubber Allergy (Severe, Verified 04/30/25 13:12) Rash HPI HPI follow up CTA runoff: Details: The patient is a 74-year-old female presenting for follow-up regarding peripheral vascular disease and preparation for left total knee arthroplasty. She was scheduled for left total knee arthroplasty by orthopedics, but the procedure was canceled due to the emergence of peripheral vascular disease concerns. A recent CT scan showed good results with a three-vessel runoff, indicating adequate blood flow. The patient has a history of swollen lower extremities, which is expected to worsen post-knee replacement due to potential disruption of lymphatic circulation. She has been advised that increased ambulation post-surgery may help reduce leg swelling over time. The patient expressed interest in managing her lymphedema and was advised against purchasing products without professional guidance. She will be evaluated at a lymphedema clinic where measurements will be taken, and appropriate management strategies will be discussed. [facility] Medical History Hx of dermatomyositis Macular degeneration Environmental allergies Seasonal allergies Positive colorectal cancer screening using Cologuard test Primary osteoarthritis of knees, bilateral Annual physical exam Osteoarthritis, knee Ovarian cyst rupture Morbidly obese Hyperlipidemia HTN (hypertension) Surgical History Hx laparoscopic cholecystectomy History of appendectomy H/O colonoscopy Social History Household Members: Spouse Housing: House Are you a primary hearing care practitioner to a significant other at home: No Do you presently have visiting nurse or other home services: No 75 years or older and lives alone: No Alcohol intake: current Alcohol intake frequency: holidays/special occasions only Comment: aware of trip hazards Patient Tobacco Use Status: Never used Tobacco e-Cigarette/Vaping Use: Never Used service: No Current occupational status: retired Cognitive needs: No Hearing needs: No Vision needs: Yes Review of Systems Const All systems reviewed & are unremarkable except as noted in HPI and below Reports no additional complaints ENT Reports Normal hearing present Card Denies chest pain, Denies chest pain at rest, Denies chest pain with activity and Denies pedal edema Resp Denies cough GI Denies abdominal pain Musc Denies abnormal gait, Denies muscle cramps and Denies radiating pain into limb Skin/Breast Denies skin ulcer and Denies wounds Neuro Reports Normal hearing present and Denies abnormal gait Psych Reports no additional complaints Physical Exam Const General: cooperative, healthy appearing and comfortable Orientation/consciousness: oriented to person, oriented to place and oriented to time HEENT Head: Yes normal to inspection Neck Neck: Yes normal visual inspection Carotids: no bruits Chest Chest palpation & inspection: normal inspection of the chest Resp Effort & Inspection: normal respiratory effort and able to speak in complete sentences Auscultation: clear to auscultation bilaterally, no crackles, no rales, no rhonchi and no wheezes Cardio Rate: regular rate Rhythm: regular rhythm Heart sounds: S1 normal heart sound present and S2 normal heart sound present Bruits: no carotid bruits Peripheral pulses: Peripheral pulses 2+ throughout GI Inspection: Yes normal to inspection Skin Wounds: no wounds Hair: normal Neuro General: oriented to person, oriented to place and oriented to time Cranial nerves: Yes CN's II-XII intact bilaterally and Yes Normal hearing present Cognition (Neuro): normal cognition Motor exam (neuro): 5/5 motor strength present throughout Extrem Other: venous exam: +2 edema Right in cm: Thigh 60 Knee 57 Calf 53 Ankle 29 Left in cm: Thigh 63 Knee 59 Calf 53 Ankle 30 General: No clubbing, No cyanosis and Yes edema Psych Appearance: grossly normal Mental Status: mental status grossly normal Speech and movement: Normal speech and movement present Results Reviewed Results Reviewed: CT scan dated 04/02/2025 was reviewed normal three-vessel runoff. Written report and images Assessment & Plan Assessment & Plan (1) PAD (peripheral artery disease): Code(s): I73.9 - Peripheral vascular disease, unspecified Category: Medical Plan: In short stable from a peripheral vascular standpoint. No intervention indicated. She will move forward with her left total knee arthroplasty with orthopedics. We will continue to follow her for leg swelling perspective (2) Lymphedema: Code(s): I89.0 - Lymphedema, not elsewhere classified Category: Medical Plan: In short the patient has late on sent lymphedema. The patient has been on conservative treatment for at least 3 months with minimal relief. In addition on physical we are noticing significant swelling and hyperplasia. It appears that she has stage 2 lymphedema. Patient has completed multiple forms of conservative therapy yet significant symptoms remain. Patient requires the use of a pneumatic compression device which we will assist in trying to have the patient obtain them. A pneumatic compression device will help reduce swelling and other lymphedema comorbidities. Thank you for allowing us to assist in this patient's care. Coding Level of Care Code Est Pt Level 4 (56656) Diagnoses PAD (peripheral artery disease) I73.9 Lymphedema I89.0
--- OUTSIDE RECORDS SUMMARY | 2025-04-30 13:34 | XMS_ITS | Patient Health Record ---
Author Organization [facility] us Address [address] [facility] [place] [address] Care Team Providers Care Automobile Dealer Name Role Phone Unknown, Unknown Primary Care [...] Insured Coverage Start Date Coverage End Date [facility] [address] [place] [address] [phone] [id number] NEY ARVIZU Self - patient is the insured Medical (General) History Medical History History ICD Code HIGH BLOOD PRESSURE
== END 2025-04-30 13:56 | disposition home or self-care (01) ==
LOC: HO.HVS 12:51
PROVIDERS: PCP Internal Medicine; Visit Provider Surgery Vascular Surgery
DX: I73.9 Peripheral vascular disease, unspecified (principal); I89.0 Lymphedema, not elsewhere classified
CPT/HCPCS: 99214

== ENCOUNTER → 2025-04-30 12:50 | Outpatient (BNVA) | payer MEDICARE, SELFPAY | PROVIDERS: PCP Internal Medicine; Visit Provider Surgery Vascular Surgery | DX: I89.0 Lymphedema, not elsewhere classified (principal); I73.9 Peripheral vascular disease, unspecified | CPT/HCPCS: 99212 ==

== ENCOUNTER 2025-05-04 10:33 | Outpatient (AMB) | payer MEDICARE, SELFPAY ==
--- NOTE | 2025-05-04 10:37 | MHC.OFFVIS ---
Intake Visit Reasons: L TKA 02/23/26- wants INJs in meantime Intake Note: 10/02/24 Allergies Latex, Natural Rubber Allergy (Severe, Verified 04/30/25 13:12) Rash HPI HPI L TKA 02/23/26- wants INJs in meantime: Details: Ms. Cade is a 74-year-old female who presents to the office today for bilateral knee osteoarthritis. Patient is tentatively scheduled for a left total knee arthroplasty on 02/23/[address] Rodríguez. She is looking to receive a cortisone injection in the meantime while she waits for surgery. Last cortisone injection was administered on 06/03/2024. [facility] Medical History Hx of dermatomyositis Macular degeneration Environmental allergies Seasonal allergies Positive colorectal cancer screening using Cologuard test Primary osteoarthritis of knees, bilateral Annual physical exam Osteoarthritis, knee Ovarian cyst rupture Morbidly obese Hyperlipidemia HTN (hypertension) Surgical History Hx laparoscopic cholecystectomy History of appendectomy H/O colonoscopy Social History Household Members: Spouse Housing: House Are you a primary patient care technician instructor to a significant other at home: No Do you presently have visiting nurse or other home services: No 75 years or older and lives alone: No Alcohol intake: current Alcohol intake frequency: holidays/special occasions only Comment: aware of trip hazards Patient Tobacco Use Status: Never used Tobacco e-Cigarette/Vaping Use: Never Used service: No Current occupational status: retired Cognitive needs: No Hearing needs: No Vision needs: Yes Review of Systems Const All systems reviewed & are unremarkable except as noted in HPI and below Physical Exam Const General: cooperative, healthy appearing and no acute distress Resp Effort & Inspection: normal respiratory effort and able to speak in complete sentences Extrem Other: Bilateral knees: Normal to inspection. No ecchymosis, erythema, or joint effusion. Crepitus felt with ROM. ROM is 0 to 110. NVI. Office Procedures AMB Joint Injection/Aspiration Joint Injection/Aspiration Primary Site: left knee Prep: site was prepped using aseptic technique, ethochloride spray was applied and injection warnings given Injected: 80 mg of, DepoMedrol, with 8 mL of (2% plain lidocaine) and in the joint Approach Used: anterolateral Procedure: The patient tolerated the procedure well, but had some pain with the injection and there was some relief with the local anesthesia Coding 34020 - Large joint Procedure code (CPT) selection complete Assessment & Plan Assessment & Plan (1) Osteoarthritis of left knee: Code(s): M17.12 - Unilateral primary osteoarthritis, left knee Category: Medical (2) Osteoarthritis of right knee: Code(s): M17.11 - Unilateral primary osteoarthritis, right knee Category: Medical Plan The patient was offered a cortisone injection in the bilateral knees with 80 mg of DepoMedrol. The patient was explained the risks, benefits, and alternatives to receiving this injection. After receiving consent for the injection, the patient had the procedure done while in the office today. The patient tolerated the procedure well with no complications. Follow-up will be PRN, or sooner if needed Coding Level of Care Code Est Pt Level 3 (88838) Diagnoses Osteoarthritis of left knee M17.12 Osteoarthritis of right knee M17.11 CPT Codes Coding - Large joint: 92887 - Large joint ([id number])
--- OUTSIDE RECORDS SUMMARY | 2025-05-04 11:33 | XMS_ITS | Patient Health Record ---
Author Organization [facility] us Address [address] [facility] [address] [place] [address] Care Team Providers Care Product Picker Name Role Phone Unknown, Unknown Primary Care [...] Start Date Coverage End Date [facility] [address] [place] [address] [id number] NEY ARVIZU Self - patient is the insured Medical (General) History Medical History History ICD Code HIGH BLOOD PRESSURE
== END 2025-05-04 10:53 | disposition home or self-care (01) ==
LOC: HO.HOS 10:34
PROVIDERS: PCP Internal Medicine; Visit Provider Physician Assistant
DX: M17.0 Bilateral primary osteoarthritis of knee (principal)
CPT/HCPCS: 20610; 99213

== ENCOUNTER → 2025-05-04 10:33 | Outpatient (BNVA) | payer MEDICARE, SELFPAY | PROVIDERS: PCP Internal Medicine; Visit Provider Physician Assistant | DX: M17.0 Bilateral primary osteoarthritis of knee (principal) | CPT/HCPCS: 20610; 99212; J1010; J2003 ==

== ENCOUNTER 2025-05-27 14:58 | Outpatient (AMB) | payer MEDICARE, SELFPAY ==
--- NOTE | 2025-05-27 15:16 | A.OFFVIS_ITS ---
Intake Visit Reasons: Lymphedema clinic Intake Note: Patient presents for lymphedema clinic. Accompanied by: Self / Same As Patient Allergies Latex, Natural Rubber Allergy (Severe, Verified 05/27/25 15:19) Rash HPI HPI Lymphedema clinic: Details: Lymphedema measures only. No provider present [facility] Medical History Hx of dermatomyositis Macular degeneration Environmental allergies Seasonal allergies Positive colorectal cancer screening using Cologuard test Primary osteoarthritis of knees, bilateral Annual physical exam Osteoarthritis, knee Ovarian cyst rupture Morbidly obese Hyperlipidemia HTN (hypertension) Surgical History Hx laparoscopic cholecystectomy History of appendectomy H/O colonoscopy Social History Household Members: Spouse Housing: House Are you a primary rn coronary care unit to a significant other at home: No Do you presently have visiting nurse or other home services: No 75 years or older and lives alone: No Alcohol intake: current Alcohol intake frequency: holidays/special occasions only Comment: aware of trip hazards Patient Tobacco Use Status: Never used Tobacco e-Cigarette/Vaping Use: Never Used service: No Current occupational status: retired Cognitive needs: No Hearing needs: No Vision needs: Yes Assessment & Plan Assessment & Plan (1) Lymphedema: Code(s): I89.0 - Lymphedema, not elsewhere classified Category: Medical Plan: See above Coding Level of Care Code Procedure Only Diagnoses Lymphedema I89.0
--- OUTSIDE RECORDS SUMMARY | 2025-05-27 18:06 | XMS_ITS | Patient Health Record ---
Author Organization [facility] us Address [address] [place] [address] Care Team Providers Care Instructional Support Technician Name Role Phone Unknown, Unknown Primary Care Provider Unavailab le Allergies No Known Allergies Reason For Referral No Information Medications Medication SIG (Take, Route, Fr equency, Duration) Notes Start Date End Date Status hydroCHLOROthiazide Active Lisinopril Active Lovastatin Active Problems Problem Type SNOMED Code ICD Code Onset Dates Problem Status W/U Status Risk Notes Problem Exposure to COVID-19 (000778391) Exposure to COVID-19 virus (Z20.828) Active confirmed Plan Of Treatment No Information Insurance Providers Payer Name Payer Address Payer Phone Subscriber Number Group Number Insured Name Patient Relationship to Insured Coverage Start Date Coverage End Date [facility] [address] [place] [address] [id number] NEY ARVIZU Self - patient is the insured Medical (General) History Medical History History ICD Code HIGH BLOOD PRESSURE
== END 2025-05-27 16:07 | disposition home or self-care (01) ==
LOC: HO.HVS 14:58
PROVIDERS: PCP Internal Medicine; Visit Provider Surgery Vascular Surgery
DX: I89.0 Lymphedema, not elsewhere classified (principal)

== ENCOUNTER → 2025-05-27 14:58 | Outpatient (BNVA) | payer MEDICARE, SELFPAY | PROVIDERS: PCP Internal Medicine; Visit Provider Surgery Vascular Surgery | DX: I89.0 Lymphedema, not elsewhere classified (principal) | CPT/HCPCS: 99211 ==

== ENCOUNTER 2025-05-28 11:39 | Outpatient (REF) | payer MEDICARE, SELFPAY ==
[2025-05-28 16:17] LABS: MANUAL DIFF FLAG NO
[2025-05-28 16:35] LABS: Hematocrit 39.1 % (37.0-47.0); Hemoglobin 12.4 g/dl (12.0-16.0); Imm Gran Abs Auto 0.03 X10*3/uL (0.00-0.03); Imm Gran Pct Auto 0.3 % (0.0-0.4); Lymphocytes Absolute Auto 1.9 X10*3/uL (1.2-4.9); Mean Corpuscular HGB Conc 31.7 g/dl (31.0-35.0); Mean Corpuscular Hemoglobin 29.5 pg (27.0-33.0); Mean Corpuscular Volume 92.9 fL (80.0-98.0); NRBC Abs Auto 0.000 X10*3/uL (0.0-0.012); NRBC Pct Auto 0.0 /100WBC (0.0-0.2); Platelet Count 289 X10*3/uL (160-400); Red Blood Count 4.21 X10*6/uL (4.20-5.50); White Blood Count 8.8 X10*3/uL (4.8-10.8)
[2025-05-28 16:43] LABS: Alanine Aminotransferase 15 U/L (0-31); Albumin Level 4.3 g/dL (3.5-5.0); Alkaline Phosphatase 69 U/L (39-117); Anion Gap 12 (12-20); Aspartate Amino Transferase 21 U/L (5-31); Blood Urea Nitrogen 21 mg/dL (9-16); Calcium 9.4 mg/dL (8.4-10.2); Carbon Dioxide 30 mmol/L (22-29); Chloride 104 mmol/L (96-108); Estimated Glomerular Filt Rate > 60; Iron 69 mcg/dL (30-160); Percent Iron Saturation 27 % (15-50); Potassium 3.9 mmol/L (3.3-5.1); Sodium 142 mmol/L (135-145); Total Iron Binding Capacity 252 mcg/dL (228-428); Total Protein 6.8 g/dL (6.5-8.0); Unsaturated Iron Binding 183 ug/dL
[2025-05-28 17:05] LABS: Folate 16.6 ng/mL (> or = 4.0); Vitamin B12 1275 pg/mL (200-900)
[2025-05-28 17:27] LABS: Free T4 (Free Thyroxine) 1.09 ng/dL (0.71-1.85)
== END 2025-05-28 11:40 | disposition home or self-care (01) ==
LOC: HO.HMGCLDS 11:39
PROVIDERS: PCP Internal Medicine; Visit Provider Internal Medicine
DX: I10 Essential (primary) hypertension (principal); E78.5 Hyperlipidemia, unspecified; E55.9 Vitamin D deficiency, unspecified; E66.01 Morbid (severe) obesity due to excess calories; Z68.36 Body mass index [BMI] 36.0-36.9, adult; Z79.899 Other long term (current) drug therapy
CPT/HCPCS: 36415; 80053; 82306; 82607; 82746; 83540; 84439; 84443; 85025; 96127; 99397

== ENCOUNTER 2025-05-28 11:39 | Outpatient (AMB) | payer MEDICARE, SELFPAY ==
--- NOTE | 2025-05-28 12:24 | MHC.PC.OV ---
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 Accompanied by: Self / Same As Patient Allergies Latex, Natural Rubber Allergy (Severe, Verified 05/27/25 15:19) Rash Medication List - Last Reconciled 05/28/25 by Aurelia Hair MD acetaminophen 650 mg PO Q6H PRN diclofenac sodium 75 mg PO Q12H PRN diphenhydramine HCl (Benadryl Allergy) 25 mg PO TID PRN docusate sodium (Colace) 100 mg PO DAILY hydrochlorothiazide 25 mg PO DAILY latanoprost 0.005% 1 drp ophthalmic (eye) DAILY lisinopril 20 mg PO DAILY lovastatin 20 mg PO DAILY ntcmltyo-pmhdak-fijcg pepper 125 mg-6 mg- 50 mcg tabs PO vit C,O-Bh-metjq-lutein-zeaxan 250-90-40-1 mg (PreserVision AREDS-2) 1 tab PO BID vitamin B complex (B Complex-Vitamin B12 tablet) 1 tab PO DAILY vitamin E (dl, acetate) 45 mg PO DAILY walker Folding Front wheeled walker DURATION 99 DAYS Tobacco use date assessed: 05/28/25 Fall risk assessment: No Falls in past year Last assessed Fall Risk: 05/28/25 Dental Screening Dental Screen Date: 05/28/25 Did you have a dental visit in the last 12 months?: Yes Did you have a dental problem in the last 6 months where you did not have access to dental care?: No Was dental information given to patient?: Patient has dentist HPI Annual PE HPI Details Pt presents for PE. PFSH Medical History Hx of dermatomyositis Macular degeneration Environmental allergies Seasonal allergies Positive colorectal cancer screening using Cologuard test Primary osteoarthritis of knees, bilateral Annual physical exam Osteoarthritis, knee Ovarian cyst rupture Morbidly obese Hyperlipidemia HTN (hypertension) Surgical History Hx laparoscopic cholecystectomy History of appendectomy H/O colonoscopy Social History Household Members: Spouse Housing: House Are you a primary interior plant caretaker to a significant other at home: No Do you presently have visiting nurse or other home services: No 75 years or older and lives alone: No Alcohol intake: current Alcohol intake frequency: holidays/special occasions only Comment: aware of trip hazards Patient Tobacco Use Status: Never used Tobacco e-Cigarette/Vaping Use: Never Used service: No Current occupational status: retired Cognitive needs: No Hearing needs: No Vision needs: Yes Questionnaire PHQ-9 Over the last 2 weeks, how often have you been bothered by any of the following problems? 1. Little interest or pleasure in doing things: not at all 2. Feeling down, depressed, or hopeless: not at all 3. Trouble falling or staying asleep, or sleeping too much: not at all 4. Feeling tired or having little energy: not at all 5. Poor appetite or overeating: not at all 6. Feeling bad about yourself - or that you are a failure or have let yourself or your family down: not at all 7. Trouble concentrating on things, such as reading the newspaper or watching television: not at all 8. Moving or speaking so slowly that other people could have noticed. Or the opposite - being so fidgety or restless that you have been moving around a lot more than usual: not at all 9. Thoughts that you would be better off or of hurting yourself in some way: not at all Total score: 0 Depression Screening Interpretation: Negative Depression Screening Done: Yes 87561 - PHQ-9 Billing: Yes Source: Developed by Drs. Jaron Anderson, Sandi Anton, Shaggy Wiggins and colleagues, with an educational arvind from [employer]. Thrive Questionnaire Date Thrive assessed: 01/09/25 I am a: Patient What is your living situation today?: I have a steady place to live Within the past 12 months, did the food you bought not last and you didn't have the money to get more?: Never true Within the past 12 months, did you worry whether your food would run out before you got money to buy more?: Never true Do you have trouble paying for medicines?: No Do you have trouble getting transportation to medical appointments?: No Do you have trouble paying your heating and electricity bill?: No Do you have trouble taking care of your child, family member or friend?: No Do you have trouble with day-to-day activities such as bathing, preparing meals, shopping, managing finances, etc.?: No Are you currently unemployed and looking for a job?: No Are you interested in more education?: No Please select the resources that you would like help with: None Currently or been in a relationship where the following occur: No concerns reported THRIVE Score: 0 AUDIT C Alcohol Use Questionnaire (AUDIT-C) 2. How many drinks containing alcohol do you have on a typical day when you are drinking?: 1 or 2 Total Score: 0 KIRSTY-7 AMB Questionnaire KIRSTY-7 Date KIRSTY - 7 assessed: 01/16/25 Feeling nervous, anxious, or on edge: 0 = Not at all Not being able to stop or control worryin = Not at all Worrying too much about different things: 0 = Not at all Trouble relaxin = Not at all Being so restless that it is hard to sit still: 0 = Not at all Becoming easily annoyed or irritable: 0 = Not at all Feeling afraid as if something awful might happen: 0 = Not at all Total KIRSTY-7 score (0-4 normal; 5-9 mild; 10-14 moderate; 15-21 severe): 0 Source: Developed by Drs. Jaron Anderson, Sandi Anton, Shaggy Wiggins and colleagues, with an educational arvind from [employer]. Review of Systems Const All systems reviewed & are unremarkable except as noted in HPI and below Eyes Reports no additional complaints ENT Reports no additional complaints Card Reports no additional complaints Resp Reports no additional complaints GI Reports no additional complaints Reports no additional complaints Physical exam (Primary Care) Vital Signs: Last Vital Signs Pulse 56 05/28/25 12:28 Resp 16 05/28/25 12:28 BP 138/72 05/28/25 12:28 Pulse Ox 97 05/28/25 12:28 Oxygen Delivery Method Room Air 05/28/25 12:28 BMI result Body Mass Index 36.3 Tobacco/Smoking Status: Tobacco use Status Tobacco use date assessed 05/28/25 05/28/25 12:32 Patient Tobacco Use Status Never used Tobacco 05/28/25 12:25 e-Cigarette/Vaping Use Never Used 05/28/25 12:25 PHQ-9: PHQ-9 Score PHQ-9: Total score 0 05/28/25 12:50 Depression Screening Interpretation: Negative Thrive Assessment: Date of Thrive Assessment Date Thrive assessed 01/09/25 05/28/25 12:25 Currently or been in a relationship where the following occur: No concerns reported Const General: no acute distress HENMT Head: Yes normal to inspection Ears: hearing grossly normal bilaterally Mouth: Normal oral and palatal mucosa present Throat: Yes posterior oropharynx normal Eyes General: appearance normal, both eyes and all related structures Neck Neck: Yes no lymphadenopathy and Yes supple Resp Effort & Inspection: normal respiratory effort Auscultation: clear to auscultation bilaterally Cardio Rhythm: regular rhythm Heart sounds: S1 normal heart sound present and S2 normal heart sound present GI Inspection: Yes normal to inspection Palpation (GI): Soft to palpation Percussion: Yes normal to percussion Auscultation: normal bowel sounds Coding Level of Care Code Est Pt Prev Care >65y(22729) Diagnoses HTN (hypertension) I10 Hyperlipidemia E78.5 Morbidly obese E66.01 Additional Codes PHQ-9 - 07169 - PHQ-9 Billing: Yes ([id number]) Assessment & Plan Assessment & Plan (1) HTN (hypertension): Code(s): I10 - Essential (primary) hypertension Category: Medical Plan: Continue current medications (2) Hyperlipidemia: Code(s): E78.5 - Hyperlipidemia, unspecified Category: Medical Plan: Continue statin (3) Morbidly obese: Code(s): E66.01 - Morbid (severe) obesity due to excess calories Category: Medical Plan: Decreasing caloric intake increasing physical activity discussed with the patient she will have a fasting blood work and will follow-up in 7 months Orders: Orders Complete Blood Count Auto Diff 05/28/25 E55.9 - Vitamin D deficiency, unspecified, E78.5 - Hyperlipidemia, unspecified, I10 - Essential (primary) hypertension IRON PROFILE 05/28/25 E55.9 - Vitamin D deficiency, unspecified, E78.5 - Hyperlipidemia, unspecified, I10 - Essential (primary) hypertension TSH reflex Free T4 05/28/25 E55.9 - Vitamin D deficiency, unspecified, E78.5 - Hyperlipidemia, unspecified, I10 - Essential (primary) hypertension Comprehensive Met. Panel 05/28/25 E55.9 - Vitamin D deficiency, unspecified, E78.5 - Hyperlipidemia, unspecified, I10 - Essential (primary) hypertension Vitamin B12 and Folate 05/28/25 E55.9 - Vitamin D deficiency, unspecified, E78.5 - Hyperlipidemia, unspecified, I10 - Essential (primary) hypertension Vitamin D 25-OH Total 05/28/25 E55.9 - Vitamin D deficiency, unspecified, E78.5 - Hyperlipidemia, unspecified, I10 - Essential (primary) hypertension Comprehensive [place]. Panel Fast 7 Months E55.9 - Vitamin D deficiency, unspecified, E78.5 - Hyperlipidemia, unspecified, I10 - Essential (primary) hypertension Lipid Panel 7 Months E55.9 - Vitamin D deficiency, unspecified, E78.5 - Hyperlipidemia, unspecified, I10 - Essential (primary) hypertension Complete Blood Count Auto Diff 7 Months E55.9 - Vitamin D deficiency, unspecified, E78.5 - Hyperlipidemia, unspecified, I10 - Essential (primary) hypertension
[2025-05-28 12:28] VITALS: BP 138/72; PULSE 56; RESP 16; O2SAT 97; BMI 36.3
--- OUTSIDE RECORDS SUMMARY | 2025-05-28 16:00 | XMS_ITS | Patient Health Record ---
Author Organization [facility] us Address [address] [place] [address] Care Team Providers Care Veterans' Coordinator Name Role Phone Unknown, Unknown Primary Care Provider Unavailab le Allergies No Known Allergies Reason For Referral No Information Medications Medication SIG (Take, Route, Fr equency, Duration) Notes Start Date End Date Status hydroCHLOROthiazide Active Lisinopril Active Lovastatin Active Problems Problem Type SNOMED Code ICD Code Onset Dates Problem Status W/U Status Risk Notes Problem Exposure to COVID-19 (926112912) Exposure to COVID-19 virus (Z20.828) Active confirmed Plan Of Treatment No Information Insurance Providers Payer Name Payer Address Payer Phone Subscriber Number Group Number Insured Name Patient Relationship to Insured Coverage Start Date Coverage End Date [facility] [address] [place] [address] [id number] Self - patient is the insured Medical (General) History Medical History History ICD Code HIGH BLOOD PRESSURE
== END 2025-05-28 13:00 | disposition home or self-care (01) ==
LOC: HO.HMCC 11:40
PROVIDERS: PCP Internal Medicine; Visit Provider Internal Medicine
DX: Z00.00 Encounter for general adult medical examination without abnormal findings (principal); I10 Essential (primary) hypertension; E66.01 Morbid (severe) obesity due to excess calories; Z68.36 Body mass index [BMI] 36.0-36.9, adult; E78.5 Hyperlipidemia, unspecified